=== PATIENT | female | born 1950 | race Caucasian/White ===

== ENCOUNTER → 2018-12-26 11:46 | Outpatient (CLI) | payer MEDICARE, OTHER, SELFPAY ==
--- NOTE | 2018-12-26 | DI.MG.S_ITS ---
BILATERAL DIGITAL SCREENING MAMMOGRAM 3D/2D WITH CAD: 12/26/2018 CLINICAL: Routine screening. Family history of breast cancer. Comparison is made to exams dated: 12/10/2017 mammogram - [facility], 10/16/2015 mammogram, and 12/06/2014 mammogram - [facility]. The tissue of both breasts is heterogeneously dense. This may lower the sensitivity of mammography. Current study was also evaluated with a Computer Aided Detection (CAD) system. There is a benign mass in the right breast. There also are benign calcifications in both breasts. No significant masses, calcifications, or other findings are seen in either breast. There has been no significant interval change. IMPRESSION: There is no mammographic evidence of malignancy. A 1 year screening mammogram is recommended. This exam was interpreted at Station ID: [id number]. NOTE: For mammograms, a report in lay terms will be sent to the patient. Approximately 15% of breast malignancies will not be visualized mammographically. In the management of a palpable breast mass, a negative mammogram must not discourage biopsy of a clinically suspicious lesion. Electronically Signed By: Emeterio lundberg/dyana:12/26/2018 12:50:16 letter sent: Normal Exam ACR BI-RADS Category 2: Benign Finding(s) 3342F
== END ==
PROVIDERS: Visit Provider Family Medicine
DX: Z12.31 Encounter for screening mammogram for malignant neoplasm of breast (principal); Z80.3 Family history of malignant neoplasm of breast
CPT/HCPCS: 77063; 77067

== ENCOUNTER → 2019-03-29 10:05 | Outpatient (CLI) | payer MEDICARE, OTHER, SELFPAY ==
--- NOTE | 2019-03-29 10:07 | DI.RAD.S_ITS ---
PROCEDURE: XR ELBOW RT MIN 3V INDICATIONS: lateral epicondyle pain TECHNIQUE: 3 views of the elbow were acquired. COMPARISON: None. FINDINGS: Bones: No fractures or dislocations. No suspicious bony lesions. Soft tissues: No elbow joint effusion. No suspicious soft tissue calcifications. 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 Dictated by: Kamaljit Harrison M.D. on 03/29/2019 at 10:26 Approved by: Kamaljit Harrison M.D. on 03/29/2019 at 10:26
== END ==
PROVIDERS: PCP Nurse Practitioner; Visit Provider Physician Assistant
DX: M25.521 Pain in right elbow (principal)
CPT/HCPCS: 73080

== ENCOUNTER → 2019-06-29 08:25 | Outpatient (CLI) | payer MEDICARE, OTHER, SELFPAY ==
[2019-06-29 10:17] LABS: Add Manual Diff / Slide Review NO; Basophils Absolute Auto 0 /uL (0-100); Basophils Percent Auto 0.4 % (0-2); Eosinophils Absolute Auto 200 /uL (0-450); Eosinophils Percent Auto 3.3 % (2-4); Hematocrit 44.6 % (36-46); Hemoglobin 15.5 g/dL (12.0-16.0); Lymphocytes Absolute Auto 2000 /uL (1100-4500); Lymphocytes Percent Auto 30.7 % (25-40); Mean Corpuscular HGB Conc 34.8 % (30-36); Mean Corpuscular Hemoglobin 30.6 PG (26-34); Mean Corpuscular Volume 87.8 fL (80-100); Monocytes Absolute Auto 400 /uL (0-900); Monocytes Percent Auto 6.7 % (3-14); Neutrophils Absolute Auto 3900 /uL (1500-7000); Neutrophils Percent Auto 58.9 % (50-75); Platelet Count 97 X10^3/uL (150-400); Red Blood Cell Count 5.07 X10^6/uL (4.0-5.2); Red Cell Distribution Width 13.6 % (11.6-14.8); White Blood Cell Count 6.6 X10^3/uL (4.5-11.0)
[2019-06-29 10:51] LABS: Alanine Aminotransferase 83 IU/L (<35); Albumin 4.2 g/dL (3.5-5.0); Albumin Globulin Ratio 1.8 (1.0-2.8); Alkaline Phosphatase 98 U/L (38-126); Aspartate Aminotransferase 81 IU/L (14-36); Bilirubin Total 1.8 mg/dL (0.2-1.3); Blood Urea Nitrogen 27 mg/dL (7-17); Calcium 9.1 mg/dL (8.4-10.2); Carbon Dioxide 31 mmol/L (22-32); Chloride 101 mmol/L (98-107); Cholesterol 176 mg/dL (140-199); Estimated Glomerular Filt Rate > 60.0 mL/min (>60); Globulin 2.4 g/dL (1.7-4.1); Glucose 101 mg/dL (80-110); HDL Cholesterol 43 mg/dL (40-60); HEMOLYSIS < 15 (0-50); LDL Cholesterol Calculated 115 mg/dL (<100); Sodium 140 mmol/L (137-145); Total Protein 6.6 g/dL (6.3-8.2); Triglycerides 92 mg/dL (35-150)
[2019-06-29 11:06] LABS: Free T3, Triiodothyronine Free 4.02 pg/mL (2.77-5.27); Free T4, Direct Thyroxine 1.42 ng/dL (0.78-2.19)
[2019-06-29 11:19] LABS: Thyroid Stimulating Hormone 2.75 uIU/mL (0.47-4.68)
== END ==
PROVIDERS: PCP Nurse Practitioner; Visit Provider Nurse Practitioner
DX: Z13.1 Encounter for screening for diabetes mellitus (principal); K59.00 Constipation, unspecified; L65.9 Nonscarring hair loss, unspecified; R63.5 Abnormal weight gain; Z13.6 Encounter for screening for cardiovascular disorders
CPT/HCPCS: 36415; 80053; 80061; 84439; 84443; 84481; 85025

== ENCOUNTER → 2019-07-03 09:38 | Outpatient (CLI) | payer MEDICARE, OTHER, SELFPAY | PROVIDERS: PCP Nurse Practitioner; Visit Provider Nurse Practitioner | DX: Z13.820 Encounter for screening for osteoporosis (principal); M85.88 Other specified disorders of bone density and structure, other site; Z78.0 Asymptomatic menopausal state | CPT/HCPCS: 77080 ==

== ENCOUNTER → 2019-07-06 08:53 | Outpatient (CLI) | payer MEDICARE, OTHER, SELFPAY ==
[2019-07-06 10:29] LABS: Alanine Aminotransferase 70 IU/L (<35); Albumin 4.3 g/dL (3.5-5.0); Albumin Globulin Ratio 1.7 (1.0-2.8); Alkaline Phosphatase 87 U/L (38-126); Aspartate Aminotransferase 69 IU/L (14-36); Bilirubin Total 1.3 mg/dL (0.2-1.3); Bilirubin Unconjugated 1.1 mg/dL (0.0-1.1); Globulin 2.6 g/dL (1.7-4.1); HEMOLYSIS < 15 (0-50); Total Protein 6.9 g/dL (6.3-8.2)
[2019-07-06 11:18] LABS: Hep C Virus Ab w/Reflex Quant NEGATIVE s/c (NEGATIVE)
== END ==
PROVIDERS: PCP Nurse Practitioner; Visit Provider Nurse Practitioner
DX: R74.8 Abnormal levels of other serum enzymes (principal); Z11.59 Encounter for screening for other viral diseases; Z91.89 Other specified personal risk factors, not elsewhere classified
CPT/HCPCS: 36415; 80076; 86803

== ENCOUNTER → 2020-07-09 08:31 | Outpatient (CLI) | payer MEDICARE, OTHER, SELFPAY ==
[2020-07-09 09:31] LABS: Alanine Aminotransferase 105 IU/L (<35); Albumin Globulin Ratio 1.5 (1.0-2.8); Alkaline Phosphatase 114 U/L (38-126); Aspartate Aminotransferase 85 IU/L (14-36); BUN Creatinine Ratio 25.9 (6-22); Bilirubin Total 1.4 mg/dL (0.2-1.3); Blood Urea Nitrogen 21 mg/dL (7-17); Calcium 8.9 mg/dL (8.4-10.2); Carbon Dioxide 33 mmol/L (22-32); Chloride 104 mmol/L (98-107); Estimated Glomerular Filt Rate > 60.0 mL/min (>60); Globulin 2.6 g/dL (1.7-4.1); Glucose 150 mg/dL (80-110); HEMOLYSIS < 15 (0-50); Potassium 4.2 mmol/L (3.4-5.1); Sodium 139 mmol/L (137-145); Total Protein 6.6 g/dL (6.3-8.2)
== END ==
PROVIDERS: PCP Nurse Practitioner; Referring Provider Nurse Practitioner; Visit Provider Nurse Practitioner
DX: R79.89 Other specified abnormal findings of blood chemistry (principal)
CPT/HCPCS: 36415; 80053

== ENCOUNTER → 2020-07-15 09:16 | Outpatient (CLI) | payer MEDICARE, OTHER, SELFPAY ==
[2020-07-15 10:57] LABS: Hemoglobin A1C% w Est Avg Glu 6.9 % (4.0-6.0)
[2020-07-15 11:28] LABS: Glucose 146 mg/dL (80-110)
== END ==
PROVIDERS: PCP Nurse Practitioner; Referring Provider Nurse Practitioner; Visit Provider Nurse Practitioner
DX: R73.01 Impaired fasting glucose (principal)
CPT/HCPCS: 36415; 82947; 83036

== ENCOUNTER → 2020-08-05 09:54 | Outpatient (CLI) | payer MEDICARE, OTHER, SELFPAY ==
--- NOTE | 2020-08-05 11:03 | DIET.PN ---
Diabetes Intake: Initial Assessment Assess: Ms. Deshpande is a 70 yof with newly diagnosed type 2 diabetes. She reports difficulty with chewing related to ill-fitting dentures creating challenges with making heathy choices. She generally eats her main meal at lunch which is provided by the [facility]. She is exercising 1 hr/day with silver sneakers. Does not currently have a glucometer. Labs: Per pt report: A1c: 6.9 Meds: na Diet: per 24 hr recall: B: coffee L: steamed vegetable w/ chicken ([facility]) D: scrambled eggs w/ steamed vegetables Sn: ww bread w/ cheese or jelly; fruit Wt: 136lb Ht: 62in BMI: 24.9 DX: Altered nutrition related laboratory values related to impaired glucose metabolism, lack of previous exposure to nutrition information as evidenced by pt report, diagnosis of diabetes, previous diet high in refined carbohydrates. Intervention: 1. Completed intake assessment. Discussed barriers to care. 2. Discussed pathophysiology of diabetes. Reviewed A1c and its correlation to blood glucose numbers. Discussed recommended BG ranges. Provided demonstration. 3. Discussed importance of self-monitoring, how often, and when to check. 4. Reviewed hyper/hypoglycemia and treatment. 5. Reviewed safe disposal of equipment (strip/lancets/insulin needles). 6. Created SMART goals for pt self-care and success. 7. Discussed program curriculum outline and class needs based on individual goals. SMART Goals: 1. Goal weight of 120lb (15lb weight loss) over the next 6 mo through portion control, label reading, consistent carb intake. Monitor/Evaluate: Pt will attend full DSME program. Basic Nutrition class scheduled for Sep 09.
== END ==
PROVIDERS: PCP Nurse Practitioner; Referring Provider Nurse Practitioner; Visit Provider Nurse Practitioner
DX: E11.9 Type 2 diabetes mellitus without complications (principal); Z71.3 Dietary counseling and surveillance; Z68.24 Body mass index [BMI] 24.0-24.9, adult
CPT/HCPCS: G0108

== ENCOUNTER → 2020-09-09 09:41 | Outpatient (CLI) | payer MEDICARE, OTHER, SELFPAY ==
--- NOTE | 2020-09-09 11:17 | DIET.PN ---
Diabetes: Healthy Eating 1 Intervention: ? Discussed pathophysiology of diabetes and impact of nutrition/diet on blood sugar control.? Discussed fed versus non-fed state.?? ? Reviewed importance of Balance, Variety, and Moderation. ? Discussed the effect of carbohydrates/protein/fat on blood sugar control.? ? Stressed importance of consistent carbohydrate intake at each meal and provided instructions for recommended servings/portions of carbohydrates/protein per meal. Provided educational material. ? Reviewed carbohydrate counting and measuring carbohydrate content via serving sizes and reading nutrition labels.? Provided handouts.?? ? Discussed the difference between simple versus complex carbohydrates and the effect of fiber on blood sugar control.? Discussed various methods to increase fiber content in diet. ? Discussed the plate method for creating more carbohydrate conscious balanced meals. ? Stressed importance of meal timing and not going >4-5 hours between meals. Encouraged adding protein to evening snack to support glucose control overnight. ? Discussed importance of making dietary habits part of lifestyle change.
== END ==
PROVIDERS: PCP Nurse Practitioner; Referring Provider Nurse Practitioner; Visit Provider Nurse Practitioner
DX: E11.9 Type 2 diabetes mellitus without complications (principal); Z71.3 Dietary counseling and surveillance
CPT/HCPCS: G0109

== ENCOUNTER → 2020-09-16 09:46 | Outpatient (CLI) | payer MEDICARE, OTHER, SELFPAY ==
--- NOTE | 2020-09-16 11:19 | DIET.PN ---
Diabetes: Healthy Eating 2 Intervention: Fats effects on glucose, weight, heart disease, cholesterol Sat Vs Unsat Protein- animal and plant based options Low, med, high fat meats Sugar substitutes Sodium Health claims Grocery shopping guidelines Eating away from home Alcohol Sick day guidelines Ketone Testing
== END ==
PROVIDERS: PCP Nurse Practitioner; Referring Provider Nurse Practitioner; Visit Provider Nurse Practitioner
DX: E11.9 Type 2 diabetes mellitus without complications (principal); Z71.3 Dietary counseling and surveillance
CPT/HCPCS: G0109

== ENCOUNTER → 2020-09-23 09:45 | Outpatient (CLI) | payer MEDICARE, OTHER, SELFPAY ==
--- NOTE | 2020-09-23 11:44 | DIET.PN ---
Diabetes Physiology: Intervention 1. Diabetes physiology 2. Detecting and treatment of acute and chronic complications 3. Diagnosis of and difference in types of diabetes 4. Self-monitoring and pattern management a. Demonstrate glucometer and control testing b. Explain BG results and action to take when out of range. 5. Foot , eye, dental care 6. Medications a. Oral medication classification b. Injectable c. Insulin i. Injection protocol ii Other delivery methods
== END ==
PROVIDERS: PCP Nurse Practitioner; Referring Provider Nurse Practitioner; Visit Provider Nurse Practitioner
DX: E11.9 Type 2 diabetes mellitus without complications (principal); Z71.3 Dietary counseling and surveillance
CPT/HCPCS: G0109

== ENCOUNTER → 2020-10-02 09:43 | Outpatient (CLI) | payer MEDICARE, OTHER, SELFPAY ==
[2020-10-02 10:32] VITALS: BMI 23.6
--- NOTE | 2020-10-02 10:32 | DIET.PN ---
DIABETES Nutrition Initial Assessment:? ASSESS:??Ms. Deshpande is a 70 yof?referred for type 2 diabetes seen as part of DSME program. She has been monitoring and keeping a glucose log since July. Her ranges have overall been WNL. She endorses better eating choices including more vegetables and fruits since getting new dentures. She has lost weight through dietary changes and feels more aware of the foods to limit and increase for better glucose control. ??? LABS: Per pt report:? A1c: 6.9 ? MEDS:?? na ? DIET: Per 24-hour recall:? B: coffee L: chicken/fish, veggies (frozen meals from [facility]) D: toast w/ cheese, fruit Eating Out: rarely Changes in Appetite: n/a Nutrition Supplements: n/a ? Weight: 128lb Height: 62in BMI: ? 23.4 ? Exercise:? silver sneakers/silver & fit NUTRITION DX 1. Altered Nutrition related labs related to impaired glucose metabolism, lack of previous exposure to accurate nutrition information as evidenced by pt report, dx of diabetes, previous diet high in refined carbohydrates.? INTERVENTION(s): 1. Reviewed pathophysiology of diabetes and impact of nutrition/diet on blood sugar control.? Discussed fed versus non-fed state.?? 2. Discussed the effect of carbohydrates/protein/fat on blood sugar control.? Stressed importance of consistent carbohydrate intake at each meal and provided instructions for recommended servings/portions of carbohydrates/protein per meal. Provided pt with educational material. 3. Reviewed carbohydrate counting and measuring carbohydrate content via serving sizes and reading nutrition labels.? Provided handouts.?? 4. Provided healthy snacking under 200 calories list. 5. Stressed importance of meal timing and not going >4-5 hours between meals. Encouraged adding protein to evening snack to support glucose control overnight. Patient agreeable. 6. Discussed healthy weight loss goals of 1-2lbs per week through diet and exercise.? Pt agreeable to walking at least 30 minutes daily. 7. Recommend monitoring fasting and alternating 2 hr PP mealtime glucose. MONITOR/EVALUATE: Anticipate good compliance.? Nutrition follow-up scheduled for December following new labs.
== END ==
PROVIDERS: PCP Nurse Practitioner; Referring Provider Nurse Practitioner; Visit Provider Nurse Practitioner
DX: E11.9 Type 2 diabetes mellitus without complications (principal); Z71.3 Dietary counseling and surveillance; Z68.23 Body mass index [BMI] 23.0-23.9, adult
CPT/HCPCS: G0109

== ENCOUNTER → 2020-11-10 10:25 | Outpatient (CLI) | payer MEDICARE, OTHER, SELFPAY ==
[2020-11-10] MEDS: COVID-19 VACC, Ad26(JANSSEN)/PF 0.5 ML IM (10:33)
== END ==
PROVIDERS: PCP Nurse Practitioner; Visit Provider Internal Medicine
DX: Z23 Encounter for immunization (principal)
CPT/HCPCS: 0031A; 91303

== ENCOUNTER → 2021-01-30 09:04 | Outpatient (CLI) | payer MEDICARE, OTHER, SELFPAY ==
[2021-01-30 09:35] LABS: Hemoglobin A1C% w Est Avg Glu 6.1 % (4.0-6.0)
[2021-01-30 10:13] LABS: Alanine Aminotransferase 65 IU/L (<35); Albumin Globulin Ratio 1.5 (1.0-2.8); Alkaline Phosphatase 112 U/L (38-126); Aspartate Aminotransferase 56 IU/L (14-36); Bilirubin Total 1.6 mg/dL (0.2-1.3); Blood Urea Nitrogen 18 mg/dL (7-17); Calcium 9.3 mg/dL (8.4-10.2); Carbon Dioxide 25 mmol/L (22-32); Chloride 105 mmol/L (98-107); Estimated Glomerular Filt Rate > 60.0 mL/min (>60); Globulin 2.6 g/dL (1.7-4.1); Glucose 123 mg/dL (80-110); HEMOLYSIS < 15 (0-50); Potassium 4.3 mmol/L (3.4-5.1); Sodium 138 mmol/L (137-145); Total Protein 6.6 g/dL (6.3-8.2)
== END ==
PROVIDERS: PCP Nurse Practitioner; Referring Provider Nurse Practitioner; Visit Provider Nurse Practitioner
DX: R73.01 Impaired fasting glucose (principal); R79.89 Other specified abnormal findings of blood chemistry
CPT/HCPCS: 36415; 80053; 83036

== ENCOUNTER → 2021-02-21 10:59 | Outpatient (CLI) | payer MEDICARE, OTHER, SELFPAY ==
--- NOTE | 2021-02-21 11:01 | DI.MG.S_ITS ---
BILATERAL DIGITAL SCREENING MAMMOGRAM 3D/2D WITH CAD: 02/21/2021 CLINICAL: Routine screening. Family history of breast cancer. Comparison is made to exams dated: 12/26/2018 mammogram, 12/10/2017 mammogram - [facility], 10/16/2015 mammogram, and 12/06/2014 mammogram - [facility]. The tissue of both breasts is heterogeneously dense. This may lower the sensitivity of mammography. Current study was also evaluated with a Computer Aided Detection (CAD) system. There is possible developing architectural distortion in the right breast anterior depth central to the nipple seen on the mediolateral oblique view only. This is more prominent. No other significant masses, calcifications, or other findings are seen in either breast. IMPRESSION: INCOMPLETE: NEEDS ADDITIONAL IMAGING EVALUATION The possible developing architectural distortion in the right breast is indeterminate. Additional views with possible ultrasound are recommended. This exam was interpreted at Station ID: [id number]. NOTE: For mammograms, a report in lay terms will be sent to the patient. Approximately 15% of breast malignancies will not be visualized mammographically. In the management of a palpable breast mass, a negative mammogram must not discourage biopsy of a clinically suspicious lesion. Electronically Signed By: Everett Caraballo M.D. [facility] [place]:02/23/2021 08:47:33 letter sent: Additional Imaging Needed ACR BI-RADS Category 0: Incomplete 3340F
== END ==
PROVIDERS: PCP Nurse Practitioner; Referring Provider Nurse Practitioner; Visit Provider Nurse Practitioner
DX: Z12.31 Encounter for screening mammogram for malignant neoplasm of breast (principal); Z80.3 Family history of malignant neoplasm of breast
CPT/HCPCS: 77063; 77067

== ENCOUNTER → 2021-03-13 12:25 | Outpatient (CLI) | payer MEDICARE, OTHER, SELFPAY ==
--- NOTE | 2021-03-13 | DI.MG.S_ITS ---
UNILATERAL RIGHT DIGITAL DIAGNOSTIC MAMMOGRAM 3D/2D WITH ADDITIONAL VIEWS: 03/13/2021 CLINICAL: Additional evaluation requested from prior study. Comparison is made to exams dated: 02/21/2021 mammogram, 12/26/2018 mammogram, and 12/10/2017 mammogram - [facility]. The tissue of right breast is heterogeneously dense. This may lower the sensitivity of mammography. The previously described possible developing architectural distortion in the right breast anterior depth central to the nipple seen on the mediolateral oblique view only is not reproduced and presumably represented superimposed breast tissue. No other significant masses or calcifications are seen in the breast. IMPRESSION: INCOMPLETE: NEEDS ADDITIONAL IMAGING EVALUATION The previously described possible architectural distortion disperses with additional views and is consistent with summation artifact; however, an ultrasound is recommended for further evaluation to exclude retroareolar abnormalities and is scheduled to immediately follow this examination. This exam was interpreted at Station ID: [id number]. NOTE: For mammograms, a report in lay terms will be sent to the patient. Approximately 15% of breast malignancies will not be visualized mammographically. In the management of a palpable breast mass, a negative mammogram must not discourage biopsy of a clinically suspicious lesion. Electronically Signed By: Emeterio Kirkpatrick M.D. aty/:03/13/2021 13:42:21 copy to: JOCELYNE LANDIS BI-RADS Category 0: Incomplete 3340F
--- NOTE | 2021-03-13 12:26 | DI.US.S_ITS ---
ULTRASOUND OF RIGHT BREAST: 03/13/2021 CLINICAL: Patient returns today to evaluate a focal asymmetry in the right breast. Comparison is made to exams dated: 03/13/2021 mammogram, 02/21/2021 mammogram, 12/26/2018 mammogram, 12/10/2017 mammogram - [facility], and 10/16/2015 mammogram - [facility]. Real-time ultrasound of the right breast was performed. Sarabia scale images of the real-time examination were reviewed. No significant abnormalities were seen sonographically in the right breast. IMPRESSION: NEGATIVE There is no sonographic evidence of malignancy. There is no abnormality seen in the right breast to correspond with the now resolved mammography finding which likely represents normal subareolar fibroglandular tissue. A 1 year screening mammogram is recommended. Findings and recommendations were conveyed to the patient during today's evaluation. This exam was interpreted at Station ID: [id number]. Electronically Signed By: Emeterio Kirkpatrick M.D. at/:03/13/2021 13:43:55 copy to: JOCELYNE MALIN letter sent: Normal Exam Ultrasound BI-RADS: 1 Negative
== END ==
PROVIDERS: PCP Nurse Practitioner; Referring Provider Nurse Practitioner; Visit Provider Nurse Practitioner
DX: R92.8 Other abnormal and inconclusive findings on diagnostic imaging of breast (principal); N64.89 Other specified disorders of breast
CPT/HCPCS: 76642; 77065; G0279

== ENCOUNTER 2021-05-05 11:15 | Outpatient (RCR) | payer MEDICARE, OTHER, SELFPAY ==
--- NOTE | 2021-04-24 14:47 | PT.OIE ---
Current Diagnoses Female genital prolapse, unspecified (04/24/21) Fecal smearing (04/24/21) Nocturia (04/24/21) Past Medical History (Last Reviewed 03/27/21 @ 04:06 by Thi Oliver MD) Antral gastritis Colon polyp Constipation Diverticulosis Elevated fasting blood sugar Elevated LFTs Hiatal hernia History of cataract surgery Impaired fasting blood sugar Intermittent vomiting Rectal prolapse Sensorineural hearing loss, bilateral Past Surgical History (Last Reviewed 03/27/21 @ 04:06 by Thi Oliver MD) History of cataract removal with insertion of prosthetic lens (11/15/16) History of cataract surgery Visit Care Team Role Provider Type MARA Lind Primary Care Provider Advanced Automatic Blocker Specialty: Family Practice Address: [address] [place] [address], [id number] Email: [email or web address] Thi Oliver MD Attending Provider Physician Referring Provider Specialty: SCIENTOLOGIST Address: [address] [place] [address], [id number] Email: Physical Therapy Initial Evaluation PT-OP-A Visit Information Start: 04/24/21 07:22 Freq: Status: Active Protocol: Document 04/24/21 10:15 AMB (Rec: 04/24/21 14:46 AMB [email or web address]) Out-Patient Physical Therapy Visit Information Visit Information Visit Type Initial Evaluation Visit Start Time 10:15 Visit Stop Time 11:00 Total Visit Minutes 45 Visit Number 1 PT-OP-B Current Condition Start: 04/24/21 07:22 Freq: Status: Active Protocol: Document 04/24/21 10:15 AMB (Rec: 04/24/21 10:38 AMB [id number]) Current Condition History of Current Condition Onset Date A few years Current Complaints fecal and urinary incontinence History of Current Condition Fecal incontinence (mucus) and urine incontinence (unable to say what causes). Variable constipation, states sometimes has a bowel movement 1x/week and sometimes 1x/day. History of some kind of prolapse surgery in 2016 in [place]. 2 vaginal deliveries, did tear but doesn't think into rectum . Nocturia and urinary frequency but denies triggers. Feels like sometimes she needs to strain to have a bowel movement and then feels pressure from prolapse. Is sometimes constipated and sometimes has very loose stools. Treatment Goals Patient/Caregiver Goals Decrease fecal incontinence Prior Functional Status Baseline Function- ADL's Independent Baseline Function- Mobility Independent Current Functional Impairments (Reported) Functional Limitations- ADL's Mucus leaking semi constant Personal Factors Other Personal Factors That May Effect Language barrier, difficulty Therapy/Recovery explaining symptoms PT-OP-I Pelvic Floor Start: 04/24/21 07:22 Freq: Status: Active Protocol: Document 04/24/21 10:15 AMB (Rec: 04/24/21 14:46 AMB [email or web address]) Pelvic Floor Assessment Urine Pelvic Floor Surgery Yes: prolapse surgery- unsure what kind Urinary Symptoms Prolapse,Falling Out Feeling/ Heavy Leakage Size Small Other Leakage Causes unsure Leaks Per Day unsure Voiding Frequency unsure Nocturia 3 Bowel Bowel Symptoms Constipation,Fecal Leakage Bowel Movement Frequency unsure [place] Stool Chart Comments variable Pelvic Clock Inter-Rectal Assessment 2/5 strength with 2 second hold, tends to hold breath and use abdominals PT-OP-T Assessment and Plan Start: 04/24/21 07:22 Freq: Status: Active Protocol: Document 04/24/21 10:15 AMB (Rec: 04/24/21 14:46 AMB [email or web address]) Physical Therapy Assessment Rehab Potential Rehabilitation Potential Fair Evaluation Complexity Number of Personal Factors/Comorbidities 1-2 Number of Body Systems Impaired 1-2 Clinical Presentation at Evaluation Stable Impairments Impairments Functional Activities,Strength Goals Two Impairment Constipation Short Term Goal (STG) Carla will avoid straining to have a bowel movement to avoid worsening her prolapse. STG Duration 4 weeks One Impairment Pelvic floor strength Short Term Goal (STG) Carla will maintain a pelvic floor contraction for 10 seconds while breathing and without abdominal compensation . STG Duration 4 weeks Shelter Goal (LTG) Carla will contract her pelvic floor for 10 seconds while in standing. LTG Duration 8 weeks Assessment Summary Assessment Carla attends physical therapy with a fairly vague complaint of fecal incontinence and urinary incontinence. She is unsure what factors contribute to either. She does have a weak pelvic floor, on and off constipation, and an apparent history of prolapse surgery. She was given a bladder diary to try to get a bit more of a specific idea of what might be contributing to her incontinence, but she would definitely benefit from pelvic floor strengthening, given her weakness and her fecal incontinence. Physical Therapy Plan Frequency and Duration Frequency of Treatment 1x/Week Duration of Treatment 8 weeks Plan of Care Start Date 04/24/21 Plan of Care End Date 06/19/21 Therapeutic Interventions Therapeutic Interventions Home Exercise Program,Manual Therapy,Neuromuscular Re- education,Self-Care/Home Management,Therapeutic Activities,Therapeutic Exercises Modalities Biofeedback,Cold Pack/Ice Massage,Electric Stimulation, Hot Packs Next Visit Focus/Plan Next Note Type Treatment Note Next Visit Plan Follow up on bladder diary, progress pelvic floor contraction
--- NOTE | 2021-04-24 14:47 | PT.OPPOC ---
Addendum entered and electronically signed by Amy Stafford, NIKKIE 05/19/21 09:07: Resending POC Original Note: Physical, Occupational & Speech Therapy At [facility] Current Diagnoses Female genital prolapse, unspecified (04/24/21) Fecal smearing (04/24/21) Nocturia (04/24/21) Visit Care Team Role Provider Type MARA Lind Primary Care Provider Advanced Chinese Language Professor Specialty: Family Practice Address: [address] [place] [address], [id number] Email: [email or web address] Thi Oliver MD Attending Provider Physician Referring Provider Specialty: LOADING MACHINE ADJUSTER Address: [address] [place] [address], [id number] Email: Plan Of Care PT-OP-T Assessment and Plan Start: 04/24/21 07:22 Freq: Status: Active Protocol: Document 04/24/21 10:15 AMB (Rec: 04/24/21 14:46 AMB [email or web address]) Physical Therapy Assessment Rehab Potential Rehabilitation Potential Fair Evaluation Complexity Number of Personal Factors/Comorbidities 1-2 Number of Body Systems Impaired 1-2 Clinical Presentation at Evaluation Stable Impairments Impairments Functional Activities,Strength Goals Two Impairment Constipation Short Term Goal (STG) Carla will avoid straining to have a bowel movement to avoid worsening her prolapse. STG Duration 4 weeks One Impairment Pelvic floor strength Short Term Goal (STG) Carla will maintain a pelvic floor contraction for 10 seconds while breathing and without abdominal compensation . STG Duration 4 weeks Longterm Goal (LTG) Carla will contract her pelvic floor for 10 seconds while in standing. LTG Duration 8 weeks Assessment Summary Assessment Carla attends physical therapy with a fairly vague complaint of fecal incontinence and urinary incontinence. She is unsure what factors contribute to either. She does have a weak pelvic floor, on and off constipation, and an apparent history of prolapse surgery. She was given a bladder diary to try to get a bit more of a specific idea of what might be contributing to her incontinence, but she would definitely benefit from pelvic floor strengthening, given her weakness and her fecal incontinence. Physical Therapy Plan Frequency and Duration Frequency of Treatment 1x/Week Duration of Treatment 8 weeks Plan of Care Start Date 04/24/21 Plan of Care End Date 06/19/21 Therapeutic Interventions Therapeutic Interventions Home Exercise Program,Manual Therapy,Neuromuscular Re- education,Self-Care/Home Management,Therapeutic Activities,Therapeutic Exercises Modalities Biofeedback,Cold Pack/Ice Massage,Electric Stimulation, Hot Packs Next Visit Focus/Plan Next Note Type Treatment Note Next Visit Plan Follow up on bladder diary, progress pelvic floor contraction Plan of Care Dates Plan of Care Start Date 04/24/21 Plan of Care End Date 06/19/21 Electronically Signed by: Amy Stafford, PT 04/24/21 [id number] Please Sign and Return: I have reviewed this Plan of Care and certify that the skilled therapy services above are required to meet the patient?s needs. Physician Signature Date Printed Name and Credentials Clinical Instructor Signature Printed Name and Credentials
--- NOTE | 2021-04-30 15:33 | PT.OTN ---
Current Diagnoses Female genital prolapse, unspecified (04/30/21) Fecal smearing (04/30/21) Nocturia (04/30/21) Physical Therapy Treatment Note PT-OP-A Visit Information Start: 04/24/21 07:22 Freq: Status: Active Protocol: Document 04/30/21 10:15 AMB (Rec: 04/30/21 11:04 AMB [id number]) Out-Patient Physical Therapy Visit Information Visit Information Visit Type Treatment Note Visit Start Time 10:15 Visit Stop Time 11:00 Total Visit Minutes 45 Visit Number 2 PT-OP-B Current Condition Start: 04/24/21 07:22 Freq: Status: Active Protocol: Document 04/24/21 10:15 AMB (Rec: 04/24/21 10:38 AMB [id number]) Current Condition History of Current Condition Onset Date A few years Current Complaints fecal and urinary incontinence History of Current Condition Fecal incontinence (mucus) and urine incontinence (unable to say what causes). Variable constipation, states sometimes has a bowel movement 1x/week and sometimes 1x/day. History of some kind of prolapse surgery in 2016 in [place]. 2 vaginal deliveries, did tear but doesn't think into rectum . Nocturia and urinary frequency but denies triggers. Feels like sometimes she needs to strain to have a bowel movement and then feels pressure from prolapse. Is sometimes constipated and sometimes has very loose stools. Treatment Goals Patient/Caregiver Goals Decrease fecal incontinence Prior Functional Status Baseline Function- ADL's Independent Baseline Function- Mobility Independent Current Functional Impairments (Reported) Functional Limitations- ADL's Mucus leaking semi constant Personal Factors Other Personal Factors That May Effect Language barrier, difficulty Therapy/Recovery explaining symptoms PT-OP-C Subjective Start: 04/24/21 07:22 Freq: Status: Active Protocol: Document 04/30/21 10:15 AMB (Rec: 04/30/21 15:33 AMB [email or web address]) OP-PT Subjective Patient Comments Patient Comments Carla reports less leaking than she thought, bladder diary shows less nocturia than she reported, and 1-4 leaks of mucus/day. She thinks this might be slightly better than previous. PT-OP-I Pelvic Floor Start: 04/24/21 07:22 Freq: Status: Active Protocol: Document 04/24/21 10:15 AMB (Rec: 04/24/21 14:46 AMB [email or web address]) Pelvic Floor Assessment Urine Pelvic Floor Surgery Yes: prolapse surgery- unsure what kind Urinary Symptoms Prolapse,Falling Out Feeling/ Heavy Leakage Size Small Other Leakage Causes unsure Leaks Per Day unsure Voiding Frequency unsure Nocturia 3 Bowel Bowel Symptoms Constipation,Fecal Leakage Bowel Movement Frequency unsure [place] Stool Chart Comments variable Pelvic Clock Inter-Rectal Assessment 2/5 strength with 2 second hold, tends to hold breath and use abdominals PT-OP-Q Treatments Start: 04/24/21 07:22 Freq: Status: Active Protocol: Document 04/30/21 10:15 AMB (Rec: 04/30/21 15:33 AMB [email or web address]) Therapeutic Exercises Sitting Exercises 1 Sitting Exercise Name roll in/ roll out Side bilateral Resistance #2 t band Self-Care/Home Management Treatment Education Other Education ILU massage, increasing fluid intake for reduction of constipation, role of constipation in fecal leaking. PT-OP-T Assessment and Plan Start: 04/24/21 07:22 Freq: Status: Active Protocol: Document 04/30/21 10:15 AMB (Rec: 04/30/21 15:33 AMB [email or web address]) Physical Therapy Assessment Goals Two Impairment Constipation Short Term Goal (STG) Carla will avoid straining to have a bowel movement to avoid worsening her prolapse. STG Duration 4 weeks One Impairment Pelvic floor strength Short Term Goal (STG) Carla will maintain a pelvic floor contraction for 10 seconds while breathing and without abdominal compensation . STG Duration 4 weeks Theatrical Rigger Goal (LTG) Carla will contract her pelvic floor for 10 seconds while in standing. LTG Duration 8 weeks Assessment Summary Assessment Carla sounds like she is having a bit of leaking of mucus due to constipation. She is not having a bowel movement for multiple days and then has a couple. Goes from constipation to liquid stool and back, and is not drinking enough fluids. Encouraged her in pelvic floor strengthing, urgency reduction, and ILU bowel massage. Encouraged her in working on more regular bowel movements to avoid leaking rectally. Physical Therapy Plan Next Visit Focus/Plan Next Note Type Treatment Note Next Visit Plan Follow up on bladder diary, progress pelvic floor contraction
--- NOTE | 2021-05-05 11:40 | PT.OTN ---
Current Diagnoses Female genital prolapse, unspecified (05/05/21) Fecal smearing (05/05/21) Nocturia (05/05/21) Physical Therapy Treatment Note PT-OP-A Visit Information Start: 04/24/21 07:22 Freq: Status: Active Protocol: Document 05/05/21 11:00 AMB (Rec: 05/05/21 11:32 AMB [id number]) Out-Patient Physical Therapy Visit Information Visit Information Visit Type Treatment Note Visit Start Time 11:00 Visit Stop Time 11:45 Total Visit Minutes 45 Visit Number 3 PT-OP-B Current Condition Start: 04/24/21 07:22 Freq: Status: Active Protocol: Document 04/24/21 10:15 AMB (Rec: 04/24/21 10:38 AMB [id number]) Current Condition History of Current Condition Onset Date A few years Current Complaints fecal and urinary incontinence History of Current Condition Fecal incontinence (mucus) and urine incontinence (unable to say what causes). Variable constipation, states sometimes has a bowel movement 1x/week and sometimes 1x/day. History of some kind of prolapse surgery in 2016 in [place]. 2 vaginal deliveries, did tear but doesn't think into rectum . Nocturia and urinary frequency but denies triggers. Feels like sometimes she needs to strain to have a bowel movement and then feels pressure from prolapse. Is sometimes constipated and sometimes has very loose stools. Treatment Goals Patient/Caregiver Goals Decrease fecal incontinence Prior Functional Status Baseline Function- ADL's Independent Baseline Function- Mobility Independent Current Functional Impairments (Reported) Functional Limitations- ADL's Mucus leaking semi constant Personal Factors Other Personal Factors That May Effect Language barrier, difficulty Therapy/Recovery explaining symptoms PT-OP-C Subjective Start: 04/24/21 07:22 Freq: Status: Active Protocol: Document 05/05/21 11:00 AMB (Rec: 05/05/21 11:32 AMB [id number]) OP-PT Subjective Patient Comments Patient Comments Carla reports less leaking over the last 5 days. She is working on urge reduction. PT-OP-I Pelvic Floor Start: 04/24/21 07:22 Freq: Status: Active Protocol: Document 04/24/21 10:15 AMB (Rec: 04/24/21 14:46 AMB [email or web address]) Pelvic Floor Assessment Urine Pelvic Floor Surgery Yes: prolapse surgery- unsure what kind Urinary Symptoms Prolapse,Falling Out Feeling/ Heavy Leakage Size Small Other Leakage Causes unsure Leaks Per Day unsure Voiding Frequency unsure Nocturia 3 Bowel Bowel Symptoms Constipation,Fecal Leakage Bowel Movement Frequency unsure [place] Stool Chart Comments variable Pelvic Clock Inter-Rectal Assessment 2/5 strength with 2 second hold, tends to hold breath and use abdominals PT-OP-Q Treatments Start: 04/24/21 07:22 Freq: Status: Active Protocol: Document 05/05/21 11:00 AMB (Rec: 05/05/21 11:32 AMB [id number]) Therapeutic Exercises Supine Exercises 2 Supine Exercise Name supine leg fall out Comments with TA and PF 1 Supine Exercise Name supine march with TA and PF Reps/Minutes 10 Comments vc breath Sitting Exercises 2 Sitting Exercise Name quick flicks Comments focus on PF isolation Standing Exercises 2 Standing Exercise Name mini lunges with pelvic floor Comments cues for breathing 1 Standing Exercise Name quick flicks Comments NBOS then stride stance PT-OP-T Assessment and Plan Start: 04/24/21 07:22 Freq: Status: Active Protocol: Document 05/05/21 11:00 AMB (Rec: 05/05/21 11:32 AMB [id number]) Physical Therapy Assessment Assessment Summary Assessment Carla needed near constant cues to isolate PF muscles vs using legs/ abdominal muscles. Challenged by stabilizing with PF with movement in supine or standing. Physical Therapy Plan Next Visit Focus/Plan Next Note Type Treatment Note Next Visit Plan Could try sEMG, continue to work on pelvic floor isolation and coordination with breathing, avoiding over using abs.
--- NOTE | 2021-05-18 15:22 | PT.OPDS ---
Current Diagnoses Female genital prolapse, unspecified (05/05/21) Fecal smearing (05/05/21) Nocturia (05/05/21) Visit Care Team Role Provider Type MARA Lind Primary Care Provider Advanced Rn Diabetes Specialty: Family Practice Address: [address] [place] [address], [id number] Email: [email or web address] Thi Oliver MD Attending Provider Physician Referring Provider Specialty: [employer] Address: [address] [place] [address], [id number] Email: Visit Number Visit Number 3 Discharge Summary PT-OP-B Current Condition Start: 04/24/21 07:22 Freq: Status: Active Protocol: Document 04/24/21 10:15 AMB (Rec: 04/24/21 10:38 AMB [id number]) Current Condition History of Current Condition Onset Date A few years Current Complaints fecal and urinary incontinence History of Current Condition Fecal incontinence (mucus) and urine incontinence (unable to say what causes). Variable constipation, states sometimes has a bowel movement 1x/week and sometimes 1x/day. History of some kind of prolapse surgery in 2016 in [place]. 2 vaginal deliveries, did tear but doesn't think into rectum . Nocturia and urinary frequency but denies triggers. Feels like sometimes she needs to strain to have a bowel movement and then feels pressure from prolapse. Is sometimes constipated and sometimes has very loose stools. Treatment Goals Patient/Caregiver Goals Decrease fecal incontinence Prior Functional Status Baseline Function- ADL's Independent Baseline Function- Mobility Independent Current Functional Impairments (Reported) Functional Limitations- ADL's Mucus leaking semi constant Personal Factors Other Personal Factors That May Effect Language barrier, difficulty Therapy/Recovery explaining symptoms PT-OP-C Subjective Start: 04/24/21 07:22 Freq: Status: Active Protocol: Document 05/05/21 11:00 AMB (Rec: 05/05/21 11:32 AMB [id number]) OP-PT Subjective Patient Comments Patient Comments Carla reports less leaking over the last 5 days. She is working on urge reduction. PT-OP-I Pelvic Floor Start: 04/24/21 07:22 Freq: Status: Active Protocol: Document 04/24/21 10:15 AMB (Rec: 04/24/21 14:46 AMB [email or web address]) Pelvic Floor Assessment Urine Pelvic Floor Surgery Yes: prolapse surgery- unsure what kind Urinary Symptoms Prolapse,Falling Out Feeling/ Heavy Leakage Size Small Other Leakage Causes unsure Leaks Per Day unsure Voiding Frequency unsure Nocturia 3 Bowel Bowel Symptoms Constipation,Fecal Leakage Bowel Movement Frequency unsure [place] Stool Chart Comments variable Pelvic Clock Inter-Rectal Assessment 2/5 strength with 2 second hold, tends to hold breath and use abdominals PT-OP-T Assessment and Plan Start: 04/24/21 07:22 Freq: Status: Active Protocol: Document 05/18/21 15:18 AMB (Rec: 05/18/21 15:22 AMB [email or web address]) Physical Therapy Assessment Assessment Summary Assessment Carla called the lead front desk agent and to cancel her follow up appointments, she stated that she was getting better and no longer needed further therapy. Physical Therapy Plan Discharge Physical Therapy Discharge Reasons Patient Request
== END 2021-05-19 08:54 | disposition home or self-care (01) ==
LOC: PHYS 11:15
PROVIDERS: PCP Nurse Practitioner; Referring Provider Obstetrics & Gynecology; Visit Provider Obstetrics & Gynecology
DX: N81.9 Female genital prolapse, unspecified (principal); R15.1 Fecal smearing; R35.1 Nocturia
CPT/HCPCS: 97110; 97161; 97535

== ENCOUNTER → 2021-07-29 08:26 | Outpatient (CLI) | payer MEDICARE, OTHER, SELFPAY ==
[2021-07-29 10:20] LABS: Hemoglobin A1C% w Est Avg Glu 5.7 % (4.0-6.0)
[2021-07-29 10:22] LABS: Alanine Aminotransferase 66 IU/L (<35); Albumin 3.9 g/dL (3.5-5.0); Albumin Globulin Ratio 1.6 (1.0-2.8); Alkaline Phosphatase 87 U/L (38-126); Aspartate Aminotransferase 54 IU/L (14-36); BUN Creatinine Ratio 27.5 (6-22); Bilirubin Total 1.5 mg/dL (0.2-1.3); Blood Urea Nitrogen 22 mg/dL (7-17); Calcium 9.1 mg/dL (8.4-10.2); Carbon Dioxide 31 mmol/L (22-32); Chloride 104 mmol/L (98-107); Estimated Glomerular Filt Rate > 60.0 mL/min (>60); Globulin 2.5 g/dL (1.7-4.1); Glucose 141 mg/dL (80-110); HEMOLYSIS < 15 (0-50); Potassium 4.2 mmol/L (3.4-5.1); Sodium 141 mmol/L (137-145); Total Protein 6.4 g/dL (6.3-8.2)
== END ==
PROVIDERS: PCP Nurse Practitioner; Referring Provider Nurse Practitioner; Visit Provider Nurse Practitioner
DX: R73.01 Impaired fasting glucose (principal); R79.89 Other specified abnormal findings of blood chemistry
CPT/HCPCS: 36415; 80053; 83036

== ENCOUNTER → 2021-08-17 09:25 | Outpatient (CLI) | payer MEDICARE, OTHER, SELFPAY ==
--- NOTE | 2021-08-17 09:26 | DI.US.S_ITS ---
PROCEDURE: US ABDOMEN COMPLETE INDICATIONS: persistently elevated LFTs TECHNIQUE: Real-time scanning was performed of the abdominal and retroperitoneal organs, with image documentation. COMPARISON: None. FINDINGS: Liver: The liver is normal size measuring 14.9 cm. The echotexture is slightly heterogeneous and the liver demonstrates a nodular contour. Appropriate direction of portal vein flow. Gallbladder: The gallbladder is normal without stones, sludge, wall thickening, or pericholecystic fluid. Biliary ducts: Intrahepatic bile ducts are non-dilated. Extrahepatic bile duct caliber measures 3.6 mm. Normal is 6-7 mm or less in diameter, or 10 mm or less post-cholecystectomy. Pancreas: Visualized portions of the pancreas are sonographically normal. Spleen: Spleen is enlarged measuring 17.4 x 15.7 x 6.6 cm. The echotexture is homogeneous. Kidneys: Kidneys are at the lower limits of normal in size. The right measures 9.6 cm and the left measures 9.7 cm. There is normal cortical echotexture but slight thinning of the renal cortex and prominence of the renal sinus fat. No hydronephrosis or nephrolithiasis. Aorta: Visualized aorta is normal in caliber at less than 3 cm. Mild atherosclerosis in the distal abdominal aorta. Iliacs: Proximal common iliac arteries are normal in caliber at less than 2.5 cm. IVC: Intrahepatic inferior vena cava is patent. Miscellaneous: No free abdominal fluid. IMPRESSION: 1. Liver margin and echotexture suggests cirrhosis. 2. Splenomegaly suggests portal hypertension, though this may be secondary to other etiologies as well. 3. Normal biliary system. 4. Slightly diminutive kidneys. Dictated by: Bri Hardy M.D. on 08/17/2021 at 11:22 Approved by: Bri Hardy M.D. on 08/17/2021 at 11:27
== END ==
PROVIDERS: PCP Nurse Practitioner; Referring Provider Nurse Practitioner; Visit Provider Nurse Practitioner
DX: R79.89 Other specified abnormal findings of blood chemistry (principal); K76.0 Fatty (change of) liver, not elsewhere classified; R16.1 Splenomegaly, not elsewhere classified
CPT/HCPCS: 76700

== ENCOUNTER → 2021-09-01 12:47 | Outpatient (CLI) | payer MEDICARE, OTHER, SELFPAY ==
[2021-09-01 14:22] LABS: HEMOLYSIS < 15 (0-50); Iron 146 ug/dL (37-170)
[2021-09-01 14:33] LABS: Percent Iron Saturation 34 % (15-50); Total Iron Binding Capacity 431 ug/dL (265-497); Transferrin 300 mg/dL (206-381)
[2021-09-01 15:29] LABS: Alanine Aminotransferase 63 IU/L (<35); Albumin 4.3 g/dL (3.5-5.0); Albumin Globulin Ratio 1.7 (1.0-2.8); Alkaline Phosphatase 97 U/L (38-126); Aspartate Aminotransferase 62 IU/L (14-36); Bilirubin Total 1.9 mg/dL (0.2-1.3); Bilirubin Unconjugated 1.7 mg/dL (0.0-1.1); Globulin 2.5 g/dL (1.7-4.1); HEMOLYSIS < 15 (0-50); Total Protein 6.8 g/dL (6.3-8.2)
[2021-09-01 16:04] LABS: Ferritin 93 ng/mL (11-264)
[2021-09-02 05:43] LABS: Hepatitis A Antibody Total Positive (Negative); Hepatitis B Surf AB Quant <3.1 mIU/mL (Immunity>9.9)
[2021-09-02 08:49] LABS: Alpha 1 Anti Trypsin 149 mg/dL (101-187); Ceruloplasmin 23.9 mg/dL (19.0-39.0); Hepatitis B Core AB w/Reflex Negative (Negative); Immunoglobulin G, Quantitative 651 mg/dL (586-1602)
[2021-09-03 14:20] LABS: ANA Screen, IFA Negative (.)
[2021-09-04 12:36] LABS: Anti Mitochondrial ABY IGG <20.0 Units (0.0-20.0); Smooth Muscle Antibody 3 Units (0-19)
== END ==
PROVIDERS: PCP Nurse Practitioner; Referring Provider Student in an Organized Health Care Education/Training Program; Visit Provider Student in an Organized Health Care Education/Training Program
DX: K76.0 Fatty (change of) liver, not elsewhere classified (principal); R93.5 Abnormal findings on diagnostic imaging of other abdominal regions, including retroperitoneum; R74.8 Abnormal levels of other serum enzymes
CPT/HCPCS: 36415; 80076; 82103; 82390; 82728; 82784; 83516; 83540; 83550; 86038; 86704; 86706; 86708; 87522

== ENCOUNTER → 2021-09-22 08:47 | Outpatient (CLI) | payer MEDICARE, OTHER, SELFPAY ==
[2021-09-24 22:17] LABS: ALT (SGPT) 63 IU/L (0-40); Alpha 2-Macroglobulins, QN 312 mg/dL (110-276); Apolipoprotein A-1 132 mg/dL (116-209); Bilirubin,Total 1.3 mg/dL (0.0-1.2); Fibrosis Score 0.87 (0.00-0.21); GGT 134 IU/L (0-60); Haptoglobin 62 mg/dL (37-355); Necroinflammat Act Grade A2-Moderate activity (.); Necroinflammat Act Score 0.59 (0.00-0.17)
== END ==
PROVIDERS: PCP Nurse Practitioner; Referring Provider Student in an Organized Health Care Education/Training Program; Visit Provider Student in an Organized Health Care Education/Training Program
DX: K76.0 Fatty (change of) liver, not elsewhere classified (principal); R93.5 Abnormal findings on diagnostic imaging of other abdominal regions, including retroperitoneum; R74.8 Abnormal levels of other serum enzymes
CPT/HCPCS: 36415; 81596

== ENCOUNTER → 2021-12-15 08:21 | Outpatient (CLI) | payer MEDICARE, OTHER, SELFPAY ==
[2021-12-15 09:59] LABS: Alanine Aminotransferase 84 IU/L (<35); Albumin 4.1 g/dL (3.5-5.0); Albumin Globulin Ratio 1.5 (1.0-2.8); Alkaline Phosphatase 101 U/L (38-126); Aspartate Aminotransferase 69 IU/L (14-36); Bilirubin Total 1.3 mg/dL (0.2-1.3); Bilirubin Unconjugated 1.4 mg/dL (0.0-1.1); Globulin 2.7 g/dL (1.7-4.1); HEMOLYSIS < 15 (0-50); Total Protein 6.8 g/dL (6.3-8.2)
== END ==
PROVIDERS: Student in an Organized Health Care Education/Training Program; PCP Nurse Practitioner; Referring Provider Nurse Practitioner; Visit Provider Nurse Practitioner
DX: R74.8 Abnormal levels of other serum enzymes (principal)
CPT/HCPCS: 36415; 80076

== ENCOUNTER → 2021-12-22 10:13 | Outpatient (CLI) | payer MEDICARE, OTHER, SELFPAY ==
[2021-12-23 05:53] LABS: IGA 152 mg/dL (87-352); IGG 703 mg/dL (586-1602); IGM 38 mg/dL (26-217)
[2021-12-23 08:03] LABS: Thyroid Stimulating Hormone 1.99 uIU/mL (0.47-4.68)
[2021-12-23 20:38] LABS: Tissue Transglutaminase IgA <2 U/mL (0-3); Tissue Transglutaminase IgG <2 U/mL (0-5)
[2021-12-23 20:57] LABS: Hep C Virus Ab w/Reflex Quant NEGATIVE s/c (NEGATIVE)
== END ==
PROVIDERS: PCP Nurse Practitioner; Referring Provider Internal Medicine Gastroenterology; Visit Provider Internal Medicine Gastroenterology
DX: R93.5 Abnormal findings on diagnostic imaging of other abdominal regions, including retroperitoneum (principal); K74.60 Unspecified cirrhosis of liver; K76.0 Fatty (change of) liver, not elsewhere classified; R74.8 Abnormal levels of other serum enzymes
CPT/HCPCS: 36415; 82784; 83516; 84443; 86803

== ENCOUNTER → 2022-06-25 09:55 | Outpatient (CLI) | payer MEDICARE, OTHER, SELFPAY ==
--- NOTE | 2022-06-25 09:56 | DI.RAD.S_ITS ---
PROCEDURE: XR DEXA AXIAL SKELETON INDICATIONS: post menopausal osteoporosis COMPARISON: [facility], CR, XR DEXA AXIAL SKELETON, 07/03/2019, 9:49. FINDINGS: This blank DEXA report has been sent in error by the PACS system. The correct and complete report will be forthcoming in 1-2 days. Thank you for your patience and understanding. Approved by: Terrence Mai M.D. on 07/03/2022 at 9:34
== END ==
PROVIDERS: PCP Nurse Practitioner; Referring Provider Nurse Practitioner; Visit Provider Nurse Practitioner
DX: Z78.0 Asymptomatic menopausal state; M81.0 Age-related osteoporosis without current pathological fracture
CPT/HCPCS: 77080

== ENCOUNTER → 2022-07-01 09:08 | Outpatient (CLI) | payer MEDICARE, OTHER, SELFPAY ==
[2022-07-01 11:35] LABS: INR 1.2 (0.9-1.3); Prothrombin Time 13.2 SECONDS (10.1-12.7)
[2022-07-01 12:05] LABS: Alanine Aminotransferase 46 IU/L (<35); Albumin 4.2 g/dL (3.5-5.0); Albumin Globulin Ratio 1.6 (1.0-2.8); Alkaline Phosphatase 105 U/L (38-126); Aspartate Aminotransferase 43 IU/L (14-36); BUN Creatinine Ratio 27.9 (6-22); Bilirubin Total 1.9 mg/dL (0.2-1.3); Blood Urea Nitrogen 24 mg/dL (7-17); Carbon Dioxide 29 mmol/L (22-32); Chloride 102 mmol/L (98-107); Estimated Glomerular Filt Rate > 60 mL/min (>60); Globulin 2.6 g/dL (1.7-4.1); Glucose 121 mg/dL (80-110); HEMOLYSIS < 15 (0-50); Sodium 140 mmol/L (137-145); Total Protein 6.8 g/dL (6.3-8.2)
[2022-07-02 07:19] LABS: Alpha Fetoprotein 3.9 ng/mL (0.0-9.2)
== END ==
PROVIDERS: PCP Nurse Practitioner; Referring Provider Internal Medicine Gastroenterology; Visit Provider Internal Medicine Gastroenterology
DX: K74.60 Unspecified cirrhosis of liver (principal); R93.5 Abnormal findings on diagnostic imaging of other abdominal regions, including retroperitoneum; K76.0 Fatty (change of) liver, not elsewhere classified; R74.8 Abnormal levels of other serum enzymes
CPT/HCPCS: 36415; 80053; 82105; 85610

== ENCOUNTER → 2022-07-03 08:54 | Outpatient (CLI) | payer MEDICARE, OTHER, SELFPAY ==
--- NOTE | 2022-07-03 08:57 | DI.MG.S_ITS ---
BILATERAL DIGITAL SCREENING MAMMOGRAM 3D/2D WITH CAD: 07/03/2022 CLINICAL: Routine screening. Family history of breast cancer. Comparison is made to exams dated: 02/21/2021 mammogram, 12/26/2018 mammogram, 12/10/2017 mammogram, 03/13/2021 mammogram - [facility], and 10/16/2015 mammogram - [facility]. Both breasts are heterogeneously dense, which may obscure small masses (category c / 51-75% glandular tissue). Current study was also evaluated with a Computer Aided Detection (CAD) system. There are benign calcifications in both breasts. No significant masses, calcifications, or other findings are seen in either breast. There has been no significant interval change. IMPRESSION: BENIGN There is no mammographic evidence of malignancy. A 1 year screening mammogram is recommended. Based on the Tyrer Cuzick model (a risk assessment model) the patient's lifetime risk is 11.8% and her 10 year risk is 8.2%. According to the ACR, ACS, and NCCN guidelines, an annual breast MRI exam along with mammogram is recommended if the patient's lifetime risk is 20% or greater. This exam was interpreted at Station ID: [id number]. NOTE: For mammograms, a report in lay terms will be sent to the patient. Approximately 15% of breast malignancies will not be visualized mammographically. In the management of a palpable breast mass, a negative mammogram must not discourage biopsy of a clinically suspicious lesion. Electronically Signed By: Everett brito/dyana:07/05/2022 09:02:39 copy to: JOCELYNE MALIN letter sent: Normal Exam ACR BI-RADS Category 2: Benign Finding(s) [id number]
== END ==
PROVIDERS: PCP Nurse Practitioner; Referring Provider Nurse Practitioner; Visit Provider Nurse Practitioner
DX: Z12.31 Encounter for screening mammogram for malignant neoplasm of breast (principal); Z80.3 Family history of malignant neoplasm of breast
CPT/HCPCS: 77063; 77067

== ENCOUNTER → 2022-07-15 07:56 | Outpatient (CLI) | payer MEDICARE, OTHER, SELFPAY ==
[2022-07-15 09:51] LABS: Alanine Aminotransferase 44 IU/L (<35); Albumin Globulin Ratio 1.6 (1.0-2.8); Alkaline Phosphatase 109 U/L (38-126); Aspartate Aminotransferase 39 IU/L (14-36); Bilirubin Total 1.4 mg/dL (0.2-1.3); Blood Urea Nitrogen 20 mg/dL (7-17); Calcium 8.4 mg/dL (8.4-10.2); Carbon Dioxide 27 mmol/L (22-32); Chloride 104 mmol/L (98-107); Cholesterol 161 mg/dL (140-199); Estimated Glomerular Filt Rate > 60 mL/min (>60); Globulin 2.5 g/dL (1.7-4.1); Glucose 131 mg/dL (80-110); HDL Cholesterol 39 mg/dL (40-60); HEMOLYSIS < 15 (0-50); LDL Cholesterol Calculated 99 mg/dL (<100); Sodium 139 mmol/L (137-145); Total Protein 6.5 g/dL (6.3-8.2); Triglycerides 115 mg/dL (35-150)
[2022-07-15 10:10] LABS: Free T4, Direct Thyroxine 1.04 ng/dL (0.78-2.19)
[2022-07-15 10:24] LABS: Thyroid Stimulating Hormone 2.33 uIU/mL (0.47-4.68)
[2022-07-15 12:37] LABS: Creatinine Urine Random 276.8 mg/dL
[2022-07-15 12:43] LABS: Microalbumi Creatinin Ratio Ur 10.8 ug/mg CR (<30)
== END ==
PROVIDERS: PCP Nurse Practitioner; Referring Provider Nurse Practitioner; Visit Provider Nurse Practitioner
DX: R73.03 Prediabetes (principal); E78.2 Mixed hyperlipidemia; K74.60 Unspecified cirrhosis of liver; M81.0 Age-related osteoporosis without current pathological fracture; R79.89 Other specified abnormal findings of blood chemistry
CPT/HCPCS: 36415; 80053; 80061; 82043; 82570; 83036; 84439; 84443; 84481

== ENCOUNTER → 2022-07-28 08:42 | Outpatient (CLI) | payer MEDICARE, OTHER, SELFPAY ==
--- NOTE | 2022-07-28 | DI.US.S_ITS ---
PROCEDURE: US ABDOMEN LIMITED INDICATIONS: CIRRHOSIS TECHNIQUE: Real-time scanning was performed of the abdominal and retroperitoneal organs, with image documentation. COMPARISON: [facility], US, US ABDOMEN COMPLETE, 08/17/2021, 10:10. FINDINGS: Liver: The liver measures 15.2 cm in length and demonstrates a coarse echotexture. Gallbladder: The gallbladder wall measures 1.4 mm in diameter. No stones, sludge, pericholecystic fluid, or sonographic Minor sign. Biliary ducts: Intrahepatic bile ducts are non-dilated. Extrahepatic bile duct caliber measures 6.9 mm. Normal is 6-7 mm or less in diameter, or 10 mm or less post-cholecystectomy. Pancreas: Visualized portions of the pancreas are sonographically normal. The tail of the pancreas is not visualized. Spleen: The spleen measures 17.4 cm in length which is similar in size to the prior study dated August 17, 2021. IMPRESSION: 1. Coarse hepatic echotexture which may be associated with cirrhotic transformation. 2. Stable splenomegaly. Dictated by: Cookie Keller M.D. on 07/28/2022 at 10:00 Approved by: Cookie Keller M.D. on 07/28/2022 at 10:02
== END ==
PROVIDERS: PCP Nurse Practitioner; Referring Provider Internal Medicine Gastroenterology; Visit Provider Internal Medicine Gastroenterology
DX: K74.60 Unspecified cirrhosis of liver (principal); R93.5 Abnormal findings on diagnostic imaging of other abdominal regions, including retroperitoneum; K76.0 Fatty (change of) liver, not elsewhere classified; R16.1 Splenomegaly, not elsewhere classified
CPT/HCPCS: 76705

== ENCOUNTER → 2023-01-13 08:14 | Outpatient (CLI) | payer MEDICARE, SELFPAY ==
--- NOTE | 2023-01-13 08:19 | DI.US.S_ITS ---
PROCEDURE: US ABDOMEN LIMITED INDICATIONS: ABNORMAL LEVELS OF OTHER SERUM ENZYMES TECHNIQUE: Real-time focused scanning was performed of the abdomen, with image documentation. COMPARISON: [facility], , US ABDOMEN LIMITED, 07/28/2022, 9:04. FINDINGS: Liver is within normal limits without focal mass. Gallbladder wall is thickened at 4.6 mm. No cholelithiasis. No biliary ductal dilatation. Pancreas is grossly unremarkable. IMPRESSION: Gallbladder wall thickening, which could indicate cholecystitis in the appropriate clinical setting. Clinical correlation recommended. Dictated by: Neelima De Luna M.D. on 01/13/2023 at 10:24 Approved by: Neelima De Luna M.D. on 01/13/2023 at 10:27
[2023-01-13 09:14] LABS: INR 1.1 (0.9-1.3)
[2023-01-13 09:43] LABS: Alanine Aminotransferase 37 IU/L (<35); Albumin 4.1 g/dL (3.5-5.0); Albumin Globulin Ratio 1.6 (1.0-2.8); Alkaline Phosphatase 77 U/L (38-126); Aspartate Aminotransferase 36 IU/L (14-36); BUN Creatinine Ratio 27.4 (6-22); Bilirubin Total 1.4 mg/dL (0.2-1.3); Blood Urea Nitrogen 23 mg/dL (7-17); Calcium 8.5 mg/dL (8.4-10.2); Carbon Dioxide 30 mmol/L (22-32); Chloride 104 mmol/L (98-107); Estimated Glomerular Filt Rate > 60 mL/min (>60); Globulin 2.5 g/dL (1.7-4.1); Glucose 131 mg/dL (80-110); HEMOLYSIS < 15 (0-50); Potassium 4.3 mmol/L (3.4-5.1); Sodium 140 mmol/L (137-145); Total Protein 6.6 g/dL (6.3-8.2)
[2023-01-14 07:10] LABS: Alpha Fetoprotein 4.5 ng/mL (0.0-9.2)
== END ==
PROVIDERS: PCP Nurse Practitioner; Referring Provider Internal Medicine Gastroenterology; Visit Provider Internal Medicine Gastroenterology
DX: K74.60 Unspecified cirrhosis of liver (principal); K82.8 Other specified diseases of gallbladder
CPT/HCPCS: 36415; 76705; 80053; 82105; 85610

== ENCOUNTER 2023-03-09 08:28 | Day surgery (SDC) | payer MEDICARE, SELFPAY ==
[2023-03-09 08:45] VITALS: BMI 23.8
[2023-03-09 08:50] VITALS: BP 158/79; PULSE 78; RESP 16; TEMP 35.8; O2SAT 99
[2023-03-09] MEDS: LACTATED RINGERS 1,000 ML 42 ML IV (08:57)
--- NOTE | 2023-03-09 09:11 | P.HP_ITS ---
History of Present Illness History of Present Illness Chief complaint: EGD Narrative: Cryptogenic cirrhosis. Need for variceal screening. [facility] Medical History (Updated 07/07/22 @ 10:41 by MARA Lind) Angiectasia Antral gastritis AVM (arteriovenous malformation) of colon Colon polyp Constipation Diverticulosis Diverticulosis, sigmoid Elevated fasting blood sugar Elevated LFTs Helicobacter pylori gastritis Hepatic steatosis Hepatitis A Hiatal hernia Impaired fasting blood sugar Intermittent vomiting Liver cirrhosis Osteoporosis Prediabetes Rectal prolapse Sensorineural hearing loss, bilateral Splenomegaly Thrombocytopenia, idiopathic Surgical History H/O cystoscopy H/O hysterectomy for benign disease History of cataract removal with insertion of prosthetic lens (11/15/16) History of cataract surgery History of rectopexy Social History household members: family Smoking Status: Never smoker alcohol intake: never eating out: rarely or never Type(s) of exercise: regular exercise and advised to exercise at least 150 min/week (moderate intensity aerobic) Meds Home Medications and Allergies Home Medications Medication Instructions Recorded Confirmed Type blood-glucose meter (Blood Glucose #1 ea 08/13/20 07/07/22 Rx Monitoring kit) vitamin E 200 unit capsule 200 unit PO BID #180 caps 09/02/21 03/09/23 Rx lancets 30 gauge and blood glucose #200 ea 06/14/22 07/07/22 Rx strips combo pack alendronate 70 mg tablet 70 mg PO QWEEK #12 tabs 08/26/22 03/09/23 Rx calcium carbonate 600 mg calcium 600 mg PO DAILY 03/09/23 03/09/23 History (1,500 mg) tablet (Calcium) cholecalciferol (vitamin D3) 50 50 mcg PO DAILY 03/09/23 03/09/23 History mcg (2,000 unit) tablet (Vitamin D3) Allergies Allergy/AdvReac Type Severity Reaction Status Date / Time No Known Drug Allergies Allergy Verified 03/09/23 08:39 Exam Vital Signs (past 8 hours): - 03/09/23 08:50 Temperature 96.4 F L Pulse Rate 78 Respiratory Rate 16 Blood Pressure 158/79 H Pulse Oximetry 99 Oxygen Delivery Method Room Air Oxygen Delivery Method Room Air Narrative Exam Narrative: Oropharynx free of lesions Chest clear to auscultation percussion Cardiac exam reveals no S3 or murmur Assessment & Plan Assessment & Plan narrative: Cirrhosis with need for variceal screening. Risks, benefits, alternatives have been explained. Further recommendations will follow-up results of the study.
--- NOTE | 2023-03-09 09:12 | PM.OP.EGD ---
Operative Date/Time/Diagnoses Date of procedure: 03/09/23 Pre-op diagnosis: See indication and findings Procedure & Clinicians Study performed: EGD Indications: Cryptogenic cirrhosis need for variceal screening Surgeon: Sabrina Greene Procedure Notes Procedure in detail: After informed consent was obtained the patient was placed in left lateral decubitus position. The video upper scope was placed into the oropharynx and with the patient's help swelled into the esophagus. The esophagus stomach and duodenum were carefully examined. On withdrawal, retroflexed view the GE junction was performed. The scope was removed. The patient tolerated procedure well. Blood loss none Complications none Sedation mac Findings 1. Three columns of varices beginning at 30 cm and progressing to the GE junction at 35 cm. Three bands were placed 1 on each column. No complications were noted. 2. Small to moderate hiatal hernia 3. Gastropathy portal hypertension 4. Normal duodenal bulb and sweep Patient will follow-up EGD and banding in 3-6 weeks.
[2023-03-09 11:06] VITALS: BP 153/92; PULSE 81; RESP 17; TEMP 36.6; O2SAT 98
[2023-03-09 11:11] VITALS: BP 157/98; PULSE 85; RESP 20; TEMP 36.6; O2SAT 98
[2023-03-09 11:16] VITALS: BP 172/97; PULSE 91; RESP 16; TEMP 36.6; O2SAT 98
[2023-03-09 11:24] VITALS: BP 169/90; PULSE 74; RESP 12; O2SAT 99
[2023-03-09 11:35] VITALS: BP 170/94; PULSE 75; RESP 15; TEMP 36.4; O2SAT 99
== END 2023-03-09 11:50 | disposition home or self-care (01) ==
PROVIDERS: PCP Nurse Practitioner; Referring Provider Internal Medicine Gastroenterology; Visit Provider Internal Medicine Gastroenterology
PROC: 0DJ08ZZ Inspection of Upper Intestinal Tract, Via Natural or Artificial Opening Endoscopic (ICD-10-PCS; CPT 43235; principal; 2023-03-09 09:30)
DX: K74.69 Other cirrhosis of liver (principal); R74.8 Abnormal levels of other serum enzymes; R93.5 Abnormal findings on diagnostic imaging of other abdominal regions, including retroperitoneum; K76.0 Fatty (change of) liver, not elsewhere classified
CPT/HCPCS: 43244; J2704

== ENCOUNTER 2023-05-16 11:38 | Day surgery (SDC) | payer MEDICARE, SELFPAY ==
[2023-05-16] VITALS (8 sets, daily range): BP systolic 105–155; BP diastolic 66–97; PULSE 72–93; RESP 14–18; TEMP 36.1–36.5; O2SAT 94–97; BMI 23.8
--- NOTE | 2023-05-16 11:54 | PM.HP.1 ---
History of Present Illness History of Present Illness Date Patient Seen: 05/16/23 Time Patient Seen: 11:54 Chief complaint: EGD w/poss bx Narrative: History of cirrhosis and varices status post banding. Here for surveillance. [facility] Medical History Angiectasia Antral gastritis AVM (arteriovenous malformation) of colon Colon polyp Constipation Diverticulosis Diverticulosis, sigmoid Elevated fasting blood sugar Elevated LFTs Helicobacter pylori gastritis Hepatic steatosis Hepatitis A Hiatal hernia Impaired fasting blood sugar Intermittent vomiting Liver cirrhosis Osteoporosis Prediabetes Rectal prolapse Sensorineural hearing loss, bilateral Splenomegaly Thrombocytopenia, idiopathic Surgical History H/O cystoscopy H/O hysterectomy for benign disease History of cataract removal with insertion of prosthetic lens (11/15/16) History of cataract surgery History of rectopexy Social History household members: family Smoking Status: Never smoker alcohol intake: never eating out: rarely or never Type(s) of exercise: regular exercise and advised to exercise at least 150 min/week (moderate intensity aerobic) Meds Home Medications and Allergies Home Medications Medication Instructions Recorded Confirmed Type blood-glucose meter (Blood Glucose #1 ea 08/13/20 07/07/22 Rx Monitoring kit) vitamin E 200 unit capsule 200 unit PO BID #180 caps 09/02/21 03/09/23 Rx lancets 30 gauge and blood glucose #200 ea 06/14/22 07/07/22 Rx strips combo pack calcium carbonate 600 mg calcium 600 mg PO DAILY 03/09/23 03/09/23 History (1,500 mg) tablet (Calcium) cholecalciferol (vitamin D3) 50 50 mcg PO DAILY 03/09/23 03/09/23 History mcg (2,000 unit) tablet (Vitamin D3) alendronate 70 mg tablet 70 mg PO QWEEK #12 tabs 05/04/23 Rx Allergies Allergy/AdvReac Type Severity Reaction Status Date / Time No Known Drug Allergies Allergy Verified 03/09/23 08:39 Review of Systems Review of Systems ROS: Yes All systems reviewed with the patient and are negative except as otherwise documented Exam Const General: cooperative HENMT Head: normal to inspection Eyes General: appearance normal, both eyes and all related structures Neck Neck: normal visual inspection Chest Chest: normal inspection of the chest Resp Effort & Inspection: normal respiratory effort Cardio Rate: regular rate GI Inspection: normal to inspection Skin General: no rashes or lesions noted Neuro General: patient alert and patient awake Extrem General: normal to inspection and no pedal edema Psych Appearance: grossly normal Assessment & Plan Assessment & Plan narrative: 72-year-old female with cirrhosis and history of esophageal varices. Surveillance EGD is pursued today.
[2023-05-16] MEDS: LACTATED RINGERS 1,000 ML 42 ML IV (12:09)
--- NOTE | 2023-05-16 12:20 | PM.PREOP ---
Pre-operative Note Interval Note History & Physical reviewed/Exam performed by Physician: Yes Changes to H&P: No ASA Class (for procedural sedation): III
--- NOTE | 2023-05-16 12:49 | PM.OP.EGD ---
Operative Date/Time/Diagnoses Date of procedure: 05/16/23 Time of procedure: 12:49 Pre-op diagnosis: Cirrhosis and a history of varices with banding x3 Post-op diagnosis: same Procedure & Clinicians Study performed: EGD with banding Same procedure as scheduled: Yes Indications: Cirrhosis with a history of varices and banding x3 Surgeon: Tang Bridges Procedure Notes SCOAP/Timeout: Done Procedure in detail: After the risks and benefits were explained, written and verbal informed consent was obtained. The patient was brought into the procedure room and placed into the left lateral decubitus position. Please see anesthesia notes for sedation details. The scope was introduced into the mouth through the bite block and advanced under direct visualization to the 2nd portion of the duodenum. The scope was slowly withdrawn carefully examining the mucosa for any defects or lesions. Retroflexed views were accomplished in the stomach. The stomach was decompressed, the scope was then removed from the patient who tolerated the procedure well. Sedation minutes: 13 Specimen(s): none sent Complications: none Impression: 1. Duodenal: No overt mucosal pathology appreciated throughout. There were some scattered erythema but no ulcerations. 2. Stomach: No ulcers no mass lesions and no overt pathology throughout. No varices identified including retroflexed views of the LES. 3. Esophagus: The squamocolumnar junction correlated with the top of the gastric folds. GEJ was at approximately 34 cm from the incisors. The patient did have evidence of persistently engorged varices in the distal esophagus. This was particularly so in the 9:00 a.m. column. Decision was made for further banding. A band was successfully placed just proximal to the GE junction in the 9:00 a.m. location. This rendered the more proximal element of the variceal columns in the 9 and 6:00 a.m. locations relatively flat and they would not accept a further band. I attempted to suction up the smaller column in the 3:00 a.m. location but this did not fully come up into the banding cap so I released it and did not apply a band in this location. Endoscopic diagnosis Esophageal varices status post banding x1 Post-procedure Plan for aftercare: 1. Full liquid diet today. 2. Soft smoothie diet times 72 hours. 3. Advance to a 2 g sodium diet well chewed thereafter. 4. Repeat EGD for surveillance in approximately 6-8 weeks. Disposition: PACU
== END 2023-05-16 14:06 | disposition home or self-care (01) ==
PROVIDERS: PCP Nurse Practitioner; Referring Provider Internal Medicine Gastroenterology; Visit Provider Internal Medicine Gastroenterology
PROC: 0DJ08ZZ Inspection of Upper Intestinal Tract, Via Natural or Artificial Opening Endoscopic (ICD-10-PCS; CPT 43235; principal; 2023-05-16 13:00)
DX: I85.10 Secondary esophageal varices without bleeding (principal); K74.60 Unspecified cirrhosis of liver
CPT/HCPCS: 43244; J2704

== ENCOUNTER → 2023-07-07 08:31 | Outpatient (CLI) | payer MEDICARE, SELFPAY ==
[2023-07-07 10:14] LABS: Alanine Aminotransferase 77 IU/L (<35); Albumin 4.2 g/dL (3.5-5.0); Albumin Globulin Ratio 1.4 (1.0-2.8); Alkaline Phosphatase 79 U/L (38-126); Aspartate Aminotransferase 59 IU/L (14-36); BUN Creatinine Ratio 36.6 (6-22); Bilirubin Total 1.8 mg/dL (0.2-1.3); Blood Urea Nitrogen 30 mg/dL (7-17); Calcium 8.9 mg/dL (8.4-10.2); Carbon Dioxide 27 mmol/L (22-32); Chloride 104 mmol/L (98-107); Cholesterol 195 mg/dL (140-199); Estimated Glomerular Filt Rate > 60 mL/min (>60); Glucose 140 mg/dL (80-110); HDL Cholesterol 40 mg/dL (40-60); HEMOLYSIS < 15 (0-50); LDL Cholesterol Calculated 117 mg/dL (<100); Potassium 4.2 mmol/L (3.4-5.1); Sodium 140 mmol/L (137-145); Total Protein 7.2 g/dL (6.3-8.2); Triglycerides 190 mg/dL (35-150)
[2023-07-07 15:18] LABS: Hemoglobin A1C% w Est Avg Glu 6.6 % (4.0-6.0)
== END ==
PROVIDERS: PCP Nurse Practitioner; Referring Provider Nurse Practitioner; Visit Provider Nurse Practitioner
DX: R73.03 Prediabetes (principal); R79.89 Other specified abnormal findings of blood chemistry; M81.0 Age-related osteoporosis without current pathological fracture; K74.60 Unspecified cirrhosis of liver; E78.2 Mixed hyperlipidemia; Z79.899 Other long term (current) drug therapy
CPT/HCPCS: 36415; 80053; 80061; 83036

== ENCOUNTER → 2023-08-23 08:50 | Outpatient (CLI) | payer MEDICARE, SELFPAY ==
[2023-08-23 09:37] LABS: INR 1.1 (0.9-1.3)
[2023-08-23 09:48] LABS: Alanine Aminotransferase 54 IU/L (<35); Albumin 3.8 g/dL (3.5-5.0); Albumin Globulin Ratio 1.5 (1.0-2.8); Alkaline Phosphatase 71 U/L (38-126); Aspartate Aminotransferase 45 IU/L (14-36); Bilirubin Total 1.6 mg/dL (0.2-1.3); Blood Urea Nitrogen 24 mg/dL (7-17); Calcium 8.7 mg/dL (8.4-10.2); Carbon Dioxide 30 mmol/L (22-32); Chloride 104 mmol/L (98-107); Estimated Glomerular Filt Rate > 60 mL/min (>60); Globulin 2.5 g/dL (1.7-4.1); Glucose 149 mg/dL (80-110); HEMOLYSIS < 15 (0-50); Potassium 4.1 mmol/L (3.4-5.1); Sodium 138 mmol/L (137-145); Total Protein 6.3 g/dL (6.3-8.2)
[2023-08-24 09:24] LABS: Alpha Fetoprotein 4.4 ng/mL (0.0-9.2)
== END ==
PROVIDERS: PCP Nurse Practitioner; Referring Provider Internal Medicine Gastroenterology; Visit Provider Internal Medicine Gastroenterology
DX: K74.60 Unspecified cirrhosis of liver (principal); R93.5 Abnormal findings on diagnostic imaging of other abdominal regions, including retroperitoneum; K76.0 Fatty (change of) liver, not elsewhere classified; R74.8 Abnormal levels of other serum enzymes
CPT/HCPCS: 36415; 80053; 82105; 85610

== ENCOUNTER → 2023-08-25 15:56 | Outpatient (CLI) | payer MEDICARE, SELFPAY ==
--- NOTE | 2023-08-25 15:57 | DI.MG.S_ITS ---
BILATERAL DIGITAL SCREENING MAMMOGRAM 3D/2D WITH CAD: 08/25/2023 CLINICAL: Routine screening. Family history of breast cancer. Comparison is made to exams dated: 07/03/2022 mammogram, 02/21/2021 mammogram, and 12/26/2018 mammogram - [facility]. Both breasts are heterogeneously dense, which may obscure small masses (category c / 51-75% glandular tissue). Current study was also evaluated with a Computer Aided Detection (CAD) system. There are benign calcifications in both breasts. No significant masses, calcifications, or other findings are seen in either breast. There has been no significant interval change. IMPRESSION: BENIGN There is no mammographic evidence of malignancy. A 1 year screening mammogram is recommended. Based on the Tyrer Cuzick model (a risk assessment model) the patient's lifetime risk is 11.1% and her 10 year risk is 8.4%. According to the ACR, ACS, and NCCN guidelines, an annual breast MRI exam along with mammogram is recommended if the patient's lifetime risk is 20% or greater. This exam was interpreted at Station ID: [id number]. NOTE: For mammograms, a report in lay terms will be sent to the patient. Approximately 15% of breast malignancies will not be visualized mammographically. In the management of a palpable breast mass, a negative mammogram must not discourage biopsy of a clinically suspicious lesion. Electronically Signed By: Timothy mckinnon/dyana:08/26/2023 10:41:13 copy to: JOCELYNE MALIN letter sent: Normal Exam ACR BI-RADS Category 2: Benign Finding(s) 3342F
== END ==
PROVIDERS: PCP Nurse Practitioner; Referring Provider Nurse Practitioner; Visit Provider Nurse Practitioner
DX: Z12.31 Encounter for screening mammogram for malignant neoplasm of breast (principal); Z80.3 Family history of malignant neoplasm of breast
CPT/HCPCS: 77063; 77067

== ENCOUNTER 2023-09-07 11:03 | Day surgery (SDC) | payer OTHER, SELFPAY ==
[2023-09-07] VITALS (7 sets, daily range): BP systolic 107–153; BP diastolic 59–78; PULSE 65–81; RESP 10–18; TEMP 36.1–36.3; O2SAT 95–97; BMI 23.2
[2023-09-07] MEDS: LACTATED RINGERS 1,000 ML 42 ML IV (12:06)
--- NOTE | 2023-09-07 12:36 | PM.HP.1 ---
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 This would be episode 3. Rule out continued esophageal varices [facility] Medical History (Updated 07/26/23 @ 20:23 by MARA Lind) Osteoporosis Prediabetes Hepatitis A Splenomegaly Liver cirrhosis Angiectasia AVM (arteriovenous malformation) of colon Diverticulosis, sigmoid Hepatic steatosis Thrombocytopenia, idiopathic Helicobacter pylori gastritis Impaired fasting blood sugar Elevated fasting blood sugar Elevated LFTs Intermittent vomiting Antral gastritis Hiatal hernia Sensorineural hearing loss, bilateral Colon polyp Diverticulosis Constipation Rectal prolapse Surgical History H/O cystoscopy History of rectopexy H/O hysterectomy for benign disease History of cataract surgery History of cataract removal with insertion of prosthetic lens (11/15/16) Social History household members: family Smoking Status: Never smoker alcohol intake: never eating out: rarely or never Type(s) of exercise: regular exercise and advised to exercise at least 150 min/week (moderate intensity aerobic) Meds Home Medications and Allergies Home Medications Medication Instructions Recorded Confirmed Type vitamin E 200 unit capsule 200 unit PO BID #180 caps 09/02/21 09/07/23 Rx lancets 30 gauge and blood glucose #200 ea 06/14/22 07/07/22 Rx strips combo pack calcium carbonate 600 mg calcium 600 mg PO DAILY 03/09/23 09/07/23 History (1,500 mg) tablet (Calcium) cholecalciferol (vitamin D3) 50 50 mcg PO DAILY 03/09/23 09/07/23 History mcg (2,000 unit) tablet (Vitamin D3) blood-glucose meter (Blood Glucose #1 ea 05/26/23 Rx Monitoring kit) Glucometer #1 ea 07/13/23 07/13/23 Rx Glucose Test Strips #100 ea 07/13/23 07/13/23 Rx Allergies Allergy/AdvReac Type Severity Reaction Status Date / Time No Known Drug Allergies Allergy Verified 09/07/23 11:55 Exam Vital Signs (past 8 hours): - 09/07/23 12:04 Temperature 97.3 F L Pulse Rate 80 Respiratory Rate 18 Blood Pressure 153/78 H Pulse Oximetry 97 Oxygen Delivery Method Room Air Oxygen Delivery Method Room Air Narrative Exam Narrative: Oropharynx free of lesions Chest clear to auscultation percussion Cardiac exam revealed no S3 or murmur Assessment & Plan Assessment & Plan narrative: History of esophageal varices need for further assessment and possible banding. Risks, benefits, alternatives have been explained.
--- NOTE | 2023-09-07 12:37 | PM.OP.EGD ---
Operative Date/Time/Diagnoses Date of procedure: 09/07/23 Pre-op diagnosis: See indication and findings Procedure & Clinicians Study performed: EGD with possible banding Indications: Cryptogenic cirrhosis with esophageal varices Surgeon: Sabrina Greene Procedure Notes Procedure in detail: After informed consent was obtained the patient was placed in left lateral decubitus position. The video upper scope was placed into the oropharynx and with the patient's help swallowed into the esophagus. The esophagus stomach and duodenum were carefully examined. On withdrawal, retroflexed view the GE junction was performed. The scope was removed. The patient tolerated the procedure well. Blood loss none Complications none Sedation mac Findings 1. Most of the esophagus appeared to be normal. Just above the GE junction however there was a circumferential purple appearance and 2 areas of slight nodularity they could represent varices. These 2 areas were treated with the banding kit. 2. Gastropathy of portal hypertension 3. Normal duodenal bulb and sweep I do not think the patient will need follow-up prior to [address] her under recall. She should call if she has any issues.
== END 2023-09-07 13:45 | disposition home or self-care (01) ==
PROVIDERS: PCP Nurse Practitioner; Referring Provider Internal Medicine Gastroenterology; Visit Provider Internal Medicine Gastroenterology
PROC: 0DJ08ZZ Inspection of Upper Intestinal Tract, Via Natural or Artificial Opening Endoscopic (ICD-10-PCS; CPT 43235; principal; 2023-09-07 12:30)
DX: K74.69 Other cirrhosis of liver (principal); I85.10 Secondary esophageal varices without bleeding; K76.6 Portal hypertension; K31.89 Other diseases of stomach and duodenum
CPT/HCPCS: 43244; J2704

== ENCOUNTER → 2023-09-21 15:47 | Outpatient (CLI) | payer OTHER, SELFPAY ==
--- NOTE | 2023-09-21 | DI.US.S_ITS ---
PROCEDURE: US ABDOMEN LIMITED INDICATIONS: NON-ALCOHOLIC FATTY LIVER AND CIRRHOSIS TECHNIQUE: Real-time scanning was performed of the abdominal and retroperitoneal organs, with image documentation. COMPARISON: [facility], , US ABDOMEN LIMITED, 01/13/2023, 8:24. FINDINGS: Liver: The liver measures 12.5 cm in length and demonstrates coarse hepatic echogenicity throughout. Gallbladder: The gallbladder is mildly contracted. The wall measures 3.7 mm in diameter. No stones, sludge, pericholecystic fluid, or sonographic Minor sign. Biliary ducts: Intrahepatic bile ducts are non-dilated. Extrahepatic bile duct caliber measures 7.2 mm. Normal is 6-7 mm or less in diameter, or 10 mm or less post-cholecystectomy. Pancreas: Visualized portions of the pancreas are sonographically normal. Miscellaneous: No free abdominal fluid. The spleen measures 17.9 cm in length. IMPRESSION: 1. Increased hepatic echogenicity noted likely related to fatty infiltration of the liver but cirrhotic transformation could also be considered in the differential. 2. Contracted gallbladder with mildly thickened wall. No cholelithiasis. No other findings to suggest acute cholecystitis. Please correlate with laboratory values. Findings are equivocal for acute cholecystitis. 3. Marked splenomegaly suggesting portal hypertension. Dictated by: Cookie Keller M.D. on 09/21/2023 at 17:23 Approved by: Cookie Keller M.D. on 09/21/2023 at 17:25
== END ==
PROVIDERS: PCP Nurse Practitioner; Referring Provider Internal Medicine Gastroenterology; Visit Provider Internal Medicine Gastroenterology
DX: K74.60 Unspecified cirrhosis of liver (principal); K76.0 Fatty (change of) liver, not elsewhere classified; R16.1 Splenomegaly, not elsewhere classified
CPT/HCPCS: 76705

== ENCOUNTER → 2023-10-12 08:55 | Outpatient (CLI) | payer OTHER, SELFPAY ==
[2023-10-14 11:26] LABS: x Labcorp Estim. Avg Glu (eAG) 140 mg/dL (.); x Labcorp Hemoglobin A1c 6.5 % (4.8-5.6)
== END ==
PROVIDERS: PCP Nurse Practitioner; Referring Provider Nurse Practitioner; Visit Provider Nurse Practitioner
DX: E78.2 Mixed hyperlipidemia (principal); R73.03 Prediabetes
CPT/HCPCS: 36415; 83036

== ENCOUNTER → 2023-10-12 09:35 | Outpatient (CLI) | payer OTHER, SELFPAY ==
[2023-10-14 15:52] LABS: Fecal Immunochemical Test Positive (Negative)
== END ==
PROVIDERS: PCP Nurse Practitioner; Referring Provider Nurse Practitioner; Visit Provider Nurse Practitioner
DX: Z12.11 Encounter for screening for malignant neoplasm of colon (principal); E78.2 Mixed hyperlipidemia; R73.03 Prediabetes
CPT/HCPCS: 36415; 82274; 83036

== ENCOUNTER 2023-12-12 06:44 | Day surgery (SDC) | payer MEDICARE, SELFPAY ==
[2023-12-12] VITALS (9 sets, daily range): BP systolic 98–139; BP diastolic 51–77; PULSE 68–86; RESP 12–14; TEMP 36.2–36.4; O2SAT 96–99
--- NOTE | 2023-12-12 | PATH_ITS ---
[facility] Accession Number: [id number] No. of containers..06 Tissue . 01 Material submitted: . PART A: ileum - TERMINAL ILEUM PART B: colon - ASCENDING COLON PART C: colon - ASCENDING COLON POLYPS PART D: colon - SIGMOID PART E: rectum - RECTAL PART F: rectum - RECTAL POLYP . 01 Diagnosis: A. TERMINAL ILEUM, BIOPSY: Small bowel mucosa with no diagnostic abnormality. Negative for active inflammation, dysplasia, and malignancy. . B. ASCENDING COLON, BIOPSY: Colonic mucosa with focal erosion and frequent small dilated vascular spaces. Please see comment. Negative for features of chronic or microscopic colitis. Negative for granulomas, dysplasia, and malignancy. . C. ASCENDING COLON, POLYP X2: Tubular adenomas. . D. SIGMOID COLON, BIOPSIES: Colonic mucosa with no diagnostic abnormality. Negative for active, chronic, and microscopic colitis. Negative for dysplasia and malignancy. . E. RECTUM, BIOPSY: Hyperplastic rectal mucosa with features suggestive of mucosal prolapse and focally prominent mucosal capillaries. Please see comment. Negative for active, chronic or microscopic colitis. Negative for dysplasia or malignancy. . F. RECTUM, POLYP: Hyperplastic polyp. V 12/21/2023 1651 Local . 01 Comment: B. The ascending colon biopsies show frequent dilated vascular spaces and focal erosion which could be compatible with the reported clinical history of portal hypertension. The differential diagnosis also includes vascular ectasia. . E. The rectal biopsy shows features suggestive of mucosal prolapse; however, the presence of focally prominent mucosal capillaries could also be compatible with vascular ectasia or vascular changes due to portal hypertension. Correlation with clinical history and endoscopic impression recommended. . 01 Electronically signed: . Candace Nino MD, Pathologist NPI- [id number] . 01 Gross description: . Part A: TERMINAL ILEUM: Received in formalin are 3 fragment(s) of bergman, soft tissue measuring 0.1 x 0.1 x 0.1 cm to 0.3 x 0.3 x 0.2 cm submitted entirely in 1 cassette(s) Part B: ASCENDING COLON: Received in formalin are 2 fragment(s) of bergman, soft tissue measuring 0.3 x 0.3 x 0.2 cm to 0.4 x 0.4 x 0.2 cm submitted entirely in 1 cassette(s) Part C: ASCENDING COLON POLYPS: Received in formalin are 2 fragment(s) of bergman, soft tissue measuring 0.2 x 0.2 x 0.2 cm to 0.3 x 0.3 x 0.3 cm submitted entirely in 1 cassette(s) Part D: SIGMOID: Received in formalin are 2 fragment(s) of bergman, soft tissue measuring 0.2 x 0.2 x 0.1 cm to 0.6 x 0.2 x 0.2 cm submitted entirely in 1 cassette(s) Part E: RECTAL: Received in formalin are 2 fragment(s) of bergman, soft tissue measuring 0.2 x 0.1 x 0.1 cm to 0.3 x 0.2 x 0.2 cm submitted entirely in 1 cassette(s) Part F: RECTAL POLYP: Received in formalin is 1 fragment(s) of bergman, soft tissue measuring 0.4 x 0.4 x 0.2 cm submitted entirely in 1 cassette(s) /KAYLEEN 12/14/2023 1913 Local . 01 Microscopic: . HHV8 immunohistochemical stains were performed on blocks B and E in order to evaluate for nuclear reactivity and are both negative, excluding an HHV8 driven vascular neoplasm. The control stain showed appropriate reactivity. . * This test was developed and its performance characteristics determined by [employer]. It has not been cleared or approved by the U.S. Food and Drug Administration. The FDA has determined that such clearance or approval is not necessary. This test is used for clinical purposes. It should not be regarded as investigational or for research. . 01 Pathologist provided ICD-10: D12.2, K62.1 . 01 CPT . 733713, 747755, 670727, 567251, 666043, 653956, L13831 Specimen Comment: A courtesy copy of this report has been sent to [phone] Performed at: 01 [facility] [address], [place], [place] [id number] MD Kristian Barrera MD Phone: [phone]
[2023-12-12] MEDS: LACTATED RINGERS 1,000 ML 42 ML IV ×2 (07:30→09:45)
--- NOTE | 2023-12-12 07:36 | P.HP_ITS ---
History of Present Illness History of Present Illness Date Patient Seen: 12/12/23 Time Patient Seen: 07:36 Chief complaint: Dx Colonoscopy w/poss bx Narrative: Carla is a 73-year-old woman with a recent positive fit test who is here for her colonoscopy. Please see the office note from October for details. [facility] Medical History Osteoporosis Prediabetes Hepatitis A Splenomegaly Liver cirrhosis Angiectasia AVM (arteriovenous malformation) of colon Diverticulosis, sigmoid Hepatic steatosis Thrombocytopenia, idiopathic Helicobacter pylori gastritis Impaired fasting blood sugar Elevated fasting blood sugar Elevated LFTs Intermittent vomiting Antral gastritis Hiatal hernia Sensorineural hearing loss, bilateral Colon polyp Diverticulosis Constipation Rectal prolapse Surgical History H/O cystoscopy History of rectopexy H/O hysterectomy for benign disease History of cataract surgery History of cataract removal with insertion of prosthetic lens (11/15/16) Social History household members: family Smoking Status: Never smoker alcohol intake: never eating out: rarely or never Type(s) of exercise: regular exercise and advised to exercise at least 150 min/week (moderate intensity aerobic) Meds Home Medications and Allergies Home Medications Medication Instructions Recorded Confirmed Type vitamin E 200 unit capsule 200 unit PO BID #180 caps 09/02/21 12/12/23 Rx lancets 30 gauge and blood glucose #200 ea 06/14/22 11/07/23 Rx strips combo pack calcium carbonate 600 mg calcium 600 mg PO DAILY 03/09/23 12/12/23 History (1,500 mg) tablet (Calcium) cholecalciferol (vitamin D3) 50 50 mcg PO DAILY 03/09/23 12/12/23 History mcg (2,000 unit) tablet (Vitamin D3) blood-glucose meter (Blood Glucose #1 ea 05/26/23 11/07/23 Rx Monitoring kit) Glucometer #1 ea 07/13/23 11/07/23 Rx Glucose Test Strips #100 ea 07/13/23 11/07/23 Rx Allergies Allergy/AdvReac Type Severity Reaction Status Date / Time No Known Drug Allergies Allergy Verified 11/07/23 13:42 Exam Vital Signs (past 8 hours): - 12/12/23 07:07 Temperature 97.5 F L Pulse Rate 79 Respiratory Rate 14 Blood Pressure 139/71 Pulse Oximetry 97 Oxygen Delivery Method Room Air Oxygen Delivery Method Room Air Const General: healthy appearing Resp Effort & Inspection: normal respiratory effort Assessment & Plan Assessment and plan (1) Positive FIT (fecal immunochemical test): Status: Acute Plan We reviewed the risks and benefits of colonoscopy for colon cancer screening and a positive fit test and she would like to proceed.
--- NOTE | 2023-12-12 08:22 | PM.OP.COLON ---
Operative Date/Time/Diagnoses Date of procedure: 12/12/23 Time of procedure: 08:22 Pre-op diagnosis: Positive fit test Post-op diagnosis: same Procedure & Clinicians Study performed: Colonoscopy Same procedure as scheduled: Yes Surgeon: Elmo Hansen Procedure Notes Procedure in detail: Surgeon: Elmo Hansen MD Anesthesia: Bella Ramos CRNA Procedure: The patient was brought to the endoscopy suite, placed in left lateral decubitus position. The patient was connected to monitoring devices. A time-out was performed. Sedation was administered. Once the patient was adequately sedated, a digital rectal exam was performed and was normal. The scope was then inserted and advanced to the cecum where the appendiceal orifice was identified and photographed. The scope was then slowly withdrawn over greater than 6 minutes. The terminal ileum was intubated and there were some patches erythema within the mucosa. Random biopsies were taken with Jumbo forceps from the erythematous mucosa. The scope was withdrawn into the colon. There were more patches of erythema throughout the ascending colon and random biopsies were taken with Jumbo forceps. There were 2 small polyps in the ascending colon removed with a cold snare and sent together. There was some more mild erythema in the sigmoid colon. More random biopsies were taken from the sigmoid colon with Jumbo forceps there was more erythema in the rectum comparable to the ascending colon and biopsies were taken with Jumbo forceps. There was a 3 mm rectal polyp removed with a cold snare. The scope was retroflexed in the rectum. No other abnormalities were noted. The scope was straightened and removed. The patient was awakened and brought to recovery. Scope withdrawal time: 25 minutes Sedation time: 37 minutes EBL: 10 mL Findings: Patchy erythema in the terminal ileum, ascending colon and rectum and 2 small polyps in the ascending colon and 1 small polyp in the rectum Post-procedure Disposition: PACU
--- NOTE | 2023-12-12 09:46 | SUR.PHASEII ---
Dr Hansen notified of rectal bleeding. Stated he would expect blood on the pad for the next few hours. Bella DAMICO notified of pt dizziness while getting dressed and VS WNL. Will give 500ml LR.
--- NOTE | 2023-12-12 09:48 | SUR.PHASEII ---
Pt get dressed. Needed assistance due to dizziness. See note, MD notified. Resting with warm blanket. Tolerated juice.
--- NOTE | 2023-12-12 10:08 | SUR.PHASEII ---
Pt states dizziness is better. Resting until daughter can molded goods spot picker.
--- NOTE | 2023-12-12 10:56 | SUR.PHASEII ---
1039 Pt discharged to home after getting up to the BR to void, steady on feet. VSS. DC instructions reviewed with DTR on phone
== END 2023-12-12 10:35 | disposition home or self-care (01) ==
PROVIDERS: PCP Nurse Practitioner; Referring Provider Surgery; Visit Provider Surgery
PROC: 0DJD8ZZ Inspection of Lower Intestinal Tract, Via Natural or Artificial Opening Endoscopic (ICD-10-PCS; CPT 45378; principal; 2023-12-12 07:45)
DX: Z12.11 Encounter for screening for malignant neoplasm of colon (principal); R19.5 Other fecal abnormalities; D12.2 Benign neoplasm of ascending colon; K62.1 Rectal polyp
CPT/HCPCS: 45385; 45380; J2704

== ENCOUNTER → 2024-05-02 09:22 | Outpatient (CLI) | payer MEDICARE, SELFPAY ==
[2024-05-02 10:25] LABS: INR 1.2 (0.9-1.3)
[2024-05-02 10:40] LABS: Alanine Aminotransferase 44 IU/L (<35); Albumin 3.6 g/dL (3.5-5.0); Albumin Globulin Ratio 1.6 (1.0-2.8); Alkaline Phosphatase 85 U/L (38-126); Aspartate Aminotransferase 50 IU/L (14-36); BUN Creatinine Ratio 22.2 (6-22); Bilirubin Total 2.1 mg/dL (0.2-1.3); Blood Urea Nitrogen 20 mg/dL (7-17); Calcium 8.2 mg/dL (8.4-10.2); Carbon Dioxide 26 mmol/L (22-32); Chloride 105 mmol/L (98-107); Estimated Glomerular Filt Rate > 60 mL/min (>60); Globulin 2.3 g/dL (1.7-4.1); Glucose 127 mg/dL (80-110); HEMOLYSIS < 15 (0-50); Potassium 4.2 mmol/L (3.4-5.1); Sodium 137 mmol/L (137-145); Total Protein 5.9 g/dL (6.3-8.2)
== END ==
PROVIDERS: PCP Nurse Practitioner; Referring Provider Internal Medicine Gastroenterology; Visit Provider Internal Medicine Gastroenterology
DX: I85.00 Esophageal varices without bleeding (principal); K74.60 Unspecified cirrhosis of liver; R93.5 Abnormal findings on diagnostic imaging of other abdominal regions, including retroperitoneum; K76.0 Fatty (change of) liver, not elsewhere classified; R74.8 Abnormal levels of other serum enzymes
CPT/HCPCS: 36415; 80053; 82105; 85610

== ENCOUNTER → 2024-05-31 08:06 | Outpatient (CLI) | payer MEDICARE, SELFPAY ==
[2024-05-31 09:17] LABS: Add Manual Diff / Slide Review NO; Basophils Absolute Auto 0 /uL (0-100); Basophils Percent Auto 0.4 % (0-2); Eosinophils Absolute Auto 200 /uL (0-450); Eosinophils Percent Auto 3.4 % (2-4); Hematocrit 41.2 % (36-46); Hemoglobin 13.8 g/dL (12.0-16.0); Lymphocytes Absolute Auto 1500 /uL (1100-4500); Lymphocytes Percent Auto 25.6 % (25-40); Mean Corpuscular HGB Conc 33.6 % (30-36); Mean Corpuscular Volume 83.3 fL (80-100); Monocytes Absolute Auto 500 /uL (0-900); Monocytes Percent Auto 8.3 % (3-14); Neutrophils Absolute Auto 3600 /uL (1500-7000); Neutrophils Percent Auto 62.3 % (50-75); Platelet Count 70 X10^3/uL (150-400); Red Blood Cell Count 4.95 X10^6/uL (4.0-5.2); Red Cell Distribution Width 15.5 % (11.6-14.8); White Blood Cell Count 5.8 X10^3/uL (4.5-11.0)
[2024-05-31 09:59] LABS: Cholesterol 153 mg/dL (140-199); HDL Cholesterol 39 mg/dL (40-60); LDL Cholesterol Calculated 95 mg/dL (<100); Triglycerides 95 mg/dL (35-150)
[2024-05-31 10:07] LABS: Hemoglobin A1C% w Est Avg Glu 5.8 % (4.0-6.0)
== END ==
PROVIDERS: PCP Family Medicine; Referring Provider Family Medicine; Visit Provider Family Medicine
DX: R73.03 Prediabetes (principal); R79.89 Other specified abnormal findings of blood chemistry; Z13.220 Encounter for screening for lipoid disorders; E78.5 Hyperlipidemia, unspecified
CPT/HCPCS: 36415; 80061; 83036; 85025

== ENCOUNTER → 2024-06-01 06:52 | Outpatient (CLI) | payer MEDICARE, SELFPAY ==
--- NOTE | 2024-06-01 06:53 | DI.US.S_ITS ---
PROCEDURE: US ABDOMEN LIMITED INDICATIONS: CIRRHOSIS. HEPATITIS. SPLENOMEGALY. HCC SCREENING. TECHNIQUE: Real-time scanning was performed of the abdominal and retroperitoneal organs, with image documentation. COMPARISON: [facility], , US ABDOMEN LIMITED, 09/21/2023, 16:11. FINDINGS: Liver: Liver is normal in size and coarse and heterogeneous in echotexture. Gallbladder: Mild gallbladder wall thickening measuring 4.3 millimeters. No gallstones. No pericholecystic edema. Negative sonographic Minor's sign. Biliary ducts: Intrahepatic bile ducts are non-dilated. Extrahepatic bile duct caliber measures 6.1 mm. Normal is 6-7 mm or less in diameter, or 10 mm or less post-cholecystectomy. Pancreas: Visualized portions of the pancreas are sonographically normal. Tail is not well seen. Spleen: Enlarged measuring up to 16.5 centimeters. Miscellaneous: No free abdominal fluid. IMPRESSION: Coarsened and heterogeneous echotexture of the liver which is normal in size. Findings are consistent with chronic liver disease such as cirrhosis, recommend clinical correlation. Mild gallbladder wall thickening which is nonspecific in the setting of chronic liver disease. No gallstones or pericholecystic fluid. Splenomegaly, likely secondary to portal hypertension. Dictated by: Farhat Gonzalez M.D. on 06/01/2024 at 8:56 Approved by: Farhat Gonzalez M.D. on 06/01/2024 at 9:00
== END ==
PROVIDERS: PCP Family Medicine; Referring Provider Internal Medicine Gastroenterology; Visit Provider Internal Medicine Gastroenterology
DX: K74.60 Unspecified cirrhosis of liver (principal); R16.1 Splenomegaly, not elsewhere classified
CPT/HCPCS: 76705

== ENCOUNTER → 2024-06-26 09:26 | Outpatient (CLI) | payer MEDICARE, SELFPAY ==
--- NOTE | 2024-06-26 09:27 | DI.RAD.S_ITS ---
PROCEDURE: XR DEXA AXIAL SKELETON INDICATIONS: menopausal, osteoporosis COMPARISON: [facility], CR, XR DEXA AXIAL SKELETON, 06/25/2022, 10:51. [facility], CR, XR DEXA AXIAL SKELETON, 07/03/2019, 9:49. FINDINGS: Lumbar Spine: Bone mineral density 0.773 g/cm2, T score -2.5. Left Hip: Bone mineral density 0.801 g/cm2, T score -1.2. Left Femoral Neck: Bone mineral density 0.589 g/cm2, T score -2.3. Right Hip: Bone mineral density 0.836 g/cm2, T score -0.9. Right Femoral Neck: Bone mineral density 0.651 g/cm2, T score -1.8. Fracture Risk Calculation (when applicable): 10-year fracture risk of a major osteoporotic fracture 14 percent and of a hip fracture 3.5 percent. (T score greater or equal to -1.0 to: NORMAL) (T score from -1.1 to -2.4: OSTEOPENIA) (T score less than or equal to -2.5: OSTEOPOROSIS) IMPRESSION: Osteoporosis. Follow-up guidelines as follows: Osteoporosis: Consider a repeat DEXA and Vertebral Fracture Assessment (VFA) exam in 2 years or sooner if medically necessary, to reassess this patient's status. Osteopenia: Consider a repeat DEXA in 2-3 years to reassess this patient's status, or if there is a new clinical indication. Normal: Consider a repeat DEXA in 5 years or sooner, or if there is a new clinical indication. All treatment decisions require clinical judgment and consideration of individual patient factors, including patient preferences, comorbidities, previous drug use, risk factors not captured in the FRAX model (e.g., frailty, falls, vitamin D deficiency, increased bone turnover, interval significant decline in bone density ) and possible under- or over-estimation of fracture risk by FRAX. In addition, the NOF Guide recommends that FDA-approved medical therapies be considered in postmenopausal women and men age >= 50 years with a: * Hip or vertebral (clinical or morphometric) fracture * T-score of <=-2.5 at the spine or hip * Ten-year fracture probability by FRAX of >= 3% for hip fracture or >=20% for major osteoporotic fracture. People with diagnosed cases of osteoporosis or at high risk for fracture should have regular bone mineral density tests. For patients eligible for Medicare, routine testing is allowed once every 2 years. The testing frequency can be increased to one year for patients who have rapidly progressing disease, those who are receiving or discontinuing medical therapy to restore bone mass, or have additional risk factors. Dictated by: Everett Caraballo M.D. on 06/26/2024 at 14:50 Approved by: Everett Caraballo M.D. on 06/26/2024 at 14:53
== END ==
PROVIDERS: PCP Family Medicine; Referring Provider Nurse Practitioner; Visit Provider Nurse Practitioner
DX: M81.0 Age-related osteoporosis without current pathological fracture (principal); N95.8 Other specified menopausal and perimenopausal disorders
CPT/HCPCS: 77080

== ENCOUNTER → 2024-08-27 13:39 | Outpatient (CLI) | payer MEDICARE, SELFPAY ==
--- NOTE | 2024-08-27 | DI.MG.S_ITS ---
BILATERAL DIGITAL SCREENING MAMMOGRAM 3D/2D WITH CAD: 08/27/2024 CLINICAL: Routine screening. Family history of breast cancer. Comparison is made to exams dated: 08/25/2023 mammogram, 07/03/2022 mammogram, 03/13/2021 mammogram, and 02/21/2021 mammogram - [facility]. The breasts are heterogeneously dense, which may obscure small masses (category c / 51-75% glandular tissue). Current study was also evaluated with a Computer Aided Detection (CAD) system. There are benign calcifications in both breasts. No significant masses, calcifications, or other findings are seen in either breast. There has been no significant interval change. IMPRESSION: BENIGN There is no mammographic evidence of malignancy. A 1 year screening mammogram is recommended. Based on the Tyrer Cuzick model (a risk assessment model) the patient's lifetime risk is 10.5% and her 10 year risk is 8.6%. According to the ACR, ACS, and NCCN guidelines, an annual breast MRI exam along with mammogram is recommended if the patient's lifetime risk is 20% or greater. This exam was interpreted at Station ID: [id number]. NOTE: For mammograms, a report in lay terms will be sent to the patient. Approximately 15% of breast malignancies will not be visualized mammographically. In the management of a palpable breast mass, a negative mammogram must not discourage biopsy of a clinically suspicious lesion. Electronically Signed By: Bri galvez/dyana:08/27/2024 14:47:46 copy to: JOCELYNE MALIN letter sent: Normal Exam ACR BI-RADS Category 2: Benign
== END ==
PROVIDERS: PCP Family Medicine; Referring Provider Family Medicine; Visit Provider Family Medicine
DX: Z12.31 Encounter for screening mammogram for malignant neoplasm of breast (principal); Z80.3 Family history of malignant neoplasm of breast; R92.333 Mammographic heterogeneous density, bilateral breasts
CPT/HCPCS: 77063; 77067

== ENCOUNTER → 2024-10-19 07:51 | Outpatient (CLI) | payer MEDICARE, SELFPAY ==
[2024-10-19 08:47] LABS: Add Manual Diff / Slide Review NO; Basophils Absolute Auto 0 /uL (0-100); Basophils Percent Auto 0.3 % (0-2); Eosinophils Absolute Auto 100 /uL (0-450); Eosinophils Percent Auto 3.3 % (2-4); Hematocrit 41.7 % (36-46); Lymphocytes Absolute Auto 1000 /uL (1100-4500); Lymphocytes Percent Auto 22.6 % (25-40); Mean Corpuscular HGB Conc 33.6 % (30-36); Mean Corpuscular Hemoglobin 28.3 PG (26-34); Mean Corpuscular Volume 84.4 fL (80-100); Monocytes Absolute Auto 300 /uL (0-900); Monocytes Percent Auto 7.4 % (3-14); Neutrophils Absolute Auto 3000 /uL (1500-7000); Neutrophils Percent Auto 66.4 % (50-75); Platelet Count 44 X10^3/uL (150-400); Red Blood Cell Count 4.94 X10^6/uL (4.0-5.2); Red Cell Distribution Width 14.9 % (11.6-14.8); White Blood Cell Count 4.6 X10^3/uL (4.5-11.0)
[2024-10-19 08:49] LABS: INR 1.1 (0.9-1.3); Prothrombin Time 12.6 SECONDS (9.4-12.5)
[2024-10-19 09:06] LABS: Hemoglobin A1C% w Est Avg Glu 5.7 % (4.0-6.0)
[2024-10-19 09:10] LABS: Alanine Aminotransferase 66 IU/L (<35); Albumin 4.1 g/dL (3.5-5.0); Albumin Globulin Ratio 1.7 (1.0-2.8); Alkaline Phosphatase 79 U/L (38-126); Aspartate Aminotransferase 71 IU/L (14-36); BUN Creatinine Ratio 33.7 (6-22); Bilirubin Total 1.7 mg/dL (0.2-1.3); Blood Urea Nitrogen 30 mg/dL (7-17); Calcium 9.2 mg/dL (8.4-10.2); Carbon Dioxide 28 mmol/L (22-32); Chloride 105 mmol/L (98-107); Estimated Glomerular Filt Rate > 60 mL/min (>60); Globulin 2.4 g/dL (1.7-4.1); Glucose 122 mg/dL (80-110); HEMOLYSIS < 15 (0-50); Potassium 4.5 mmol/L (3.4-5.1); Sodium 140 mmol/L (137-145); Total Protein 6.5 g/dL (6.3-8.2)
== END ==
PROVIDERS: PCP Family Medicine; Referring Provider Family Medicine; Visit Provider Family Medicine
DX: E78.5 Hyperlipidemia, unspecified (principal); K74.60 Unspecified cirrhosis of liver; R73.03 Prediabetes; D69.3 Immune thrombocytopenic purpura
CPT/HCPCS: 36415; 80053; 82105; 83036; 85025; 85610

== ENCOUNTER → 2024-10-30 07:10 | Outpatient (CLI) | payer MEDICARE, SELFPAY ==
--- NOTE | 2024-10-30 07:11 | DI.US.S_ITS ---
PROCEDURE: US ABDOMEN LIMITED INDICATIONS: Cirrhosis, hepatitis, splenomegaly, HCC screening TECHNIQUE: Real-time scanning was performed of the abdominal and retroperitoneal organs, with image documentation. COMPARISON: None. FINDINGS: Liver: Liver is normal in size and homogeneous in echotexture. Liver is diffusely echogenic. Main hepatic vein measures 1.1 centimeters with hepatopetal flow. Gallbladder: No gallstones. No wall thickening. No pericholecystic edema. Negative sonographic Minor's sign. Biliary ducts: Intrahepatic bile ducts are non-dilated. Extrahepatic bile duct caliber measures 5.8 mm. Normal is 6-7 mm or less in diameter, or 10 mm or less post-cholecystectomy. Pancreas: Visualized portions of the pancreas are sonographically normal. Miscellaneous: No free abdominal fluid. Spleen is enlarged measuring 18.5 centimeters in long axis. IMPRESSION: Echogenic liver compatible with reported history of multiple sclerosis. No focal hepatic mass. Splenomegaly. Dictated by: Shelbi Meyers MD, PhD on 10/30/2024 at 11:39 Approved by: Shelbi Meyers MD, PhD on 10/30/2024 at 11:40
== END ==
LOC: US 07:11
PROVIDERS: PCP Family Medicine; Referring Provider Family Medicine; Visit Provider Family Medicine
DX: K74.69 Other cirrhosis of liver (principal); R79.89 Other specified abnormal findings of blood chemistry; R16.1 Splenomegaly, not elsewhere classified
CPT/HCPCS: 76705

== ENCOUNTER 2024-11-21 07:05 | Day surgery (SDC) | payer MEDICARE, SELFPAY ==
[2024-11-21] MEDS: LACTATED RINGERS 1,000 ML 42 ML IV (07:24)
[2024-11-21 07:41] VITALS: BP 134/80; PULSE 73; RESP 16; TEMP 36.4; O2SAT 99
--- NOTE | 2024-11-21 09:32 | PM.PREOP ---
Pre-operative Note COVID-19 COVID-19 status: Not tested Interval Note History & Physical reviewed/Exam performed by Physician: Yes Changes to H&P: No ASA Class (for procedural sedation): III
--- NOTE | 2024-11-21 09:33 | P.OP.EGD&C_ITS ---
Operative Date/Time/Diagnoses Date of procedure: 11/21/24 Pre-op diagnosis: See indication and findings Procedure & Clinicians Study performed: EGD and possible banding Same procedure as scheduled: Yes Surgeon: Sabrina Greene Procedure Notes Procedure in detail: After informed consent was obtained the patient was placed in left lateral dec ubitus position. The video upper scope was placed into the oropharynx and with the patient's help swallowed into the esophagus. The esophagus stomach and duodenal were carefully examined. On withdrawal, retroflexed view the GE junction was performed. The scope was removed. The patient tolerated procedure well. Blood loss none Complications none Sedation mac Findings 1.
--- NOTE | 2024-11-21 09:52 | PM.OP.EGD ---
Operative Date/Time/Diagnoses Date of procedure: 11/21/24 Pre-op diagnosis: See indication and findings Procedure & Clinicians Study performed: EGD with banding Same procedure as scheduled: Yes Indications: History of esophageal varices need for follow-up banding Surgeon: Sabrina Greene Procedure Notes Procedure in detail: After informed consent was obtained the patient was placed in left lateral decubitus position. The video upper scope was placed into the oropharynx and with the patient's help swelled into the esophagus. The esophagus stomach and duodenal were carefully examined. On withdrawal, retroflexed view the GE junction was performed. The scope was removed. The patient tolerated procedure well. Blood loss none Complications none Sedation mac Findings 1. Distal 2 cm of the esophagus with 1 large and 1 small varix. Using the banding kit these were completely treated 2. Gastropathy of portal hypertension 3. Normal duodenal bulb and sweep I would suggest that patient have follow-up endoscopy in 3 months to ensure that these varices are adequately treated.
[2024-11-21 09:55] VITALS: BP 109/53; PULSE 79; RESP 16; O2SAT 97
[2024-11-21 09:59] VITALS: BP 111/55; PULSE 77; RESP 16; O2SAT 97
[2024-11-21 10:04] VITALS: BP 116/64; PULSE 75; RESP 14; O2SAT 97
[2024-11-21 10:10] VITALS: BP 136/79; PULSE 85; RESP 14; TEMP 36.4; O2SAT 97
[2024-11-21 10:17] VITALS: BP 136/80; PULSE 83; RESP 15; TEMP 36.7; O2SAT 98
== END 2024-11-21 10:36 | disposition home or self-care (01) ==
PROVIDERS: PCP Family Medicine; Referring Provider Internal Medicine Gastroenterology; Visit Provider Internal Medicine Gastroenterology
PROC: 0DJ08ZZ Inspection of Upper Intestinal Tract, Via Natural or Artificial Opening Endoscopic (ICD-10-PCS; CPT 43244; principal; 2024-11-21 08:30)
DX: I85.10 Secondary esophageal varices without bleeding (principal); K74.69 Other cirrhosis of liver; D69.6 Thrombocytopenia, unspecified; K76.6 Portal hypertension; K31.89 Other diseases of stomach and duodenum
CPT/HCPCS: 43244; 82962; J2704

== ENCOUNTER 2025-02-20 08:48 | Day surgery (SDC) | payer MEDICARE, SELFPAY ==
[2025-02-20 12:06] VITALS: BP 137/76; PULSE 70; RESP 14; TEMP 36.2; O2SAT 99
--- NOTE | 2025-02-20 12:06 | PM.HP.IH.1 ---
History of Present Illness History of Present Illness Date Patient Seen: 02/20/25 Chief complaint: EGD w/poss bx Narrative: History of esophageal varices status post 1st banding in October need for follow-up evaluation and possible banding. [facility] Medical History (Updated 11/15/24 @ 09:31 by Sabrina Greene MD) Splenomegaly Osteoporosis Prediabetes Hepatitis A Liver cirrhosis Angiectasia AVM (arteriovenous malformation) of colon Diverticulosis, sigmoid Hepatic steatosis Thrombocytopenia, idiopathic Helicobacter pylori gastritis Impaired fasting blood sugar Elevated fasting blood sugar Elevated LFTs Intermittent vomiting Antral gastritis Hiatal hernia Sensorineural hearing loss, bilateral Colon polyp Diverticulosis Constipation Rectal prolapse Surgical History H/O cystoscopy History of rectopexy H/O hysterectomy for benign disease History of cataract surgery History of cataract removal with insertion of prosthetic lens (11/15/16) Social History household members: family alcohol intake: never eating out: rarely or never Type(s) of exercise: regular exercise and advised to exercise at least 150 min/week (moderate intensity aerobic) Meds Home Medications and Allergies Home Medications ?Medication ?Instructions ?Recorded ?Confirmed ?Type calcium carbonate (Calcium 600) 600 mg PO DAILY 03/09/23 02/20/25 History cholecalciferol (vitamin D3) 50 50 mcg PO DAILY 03/09/23 02/20/25 History mcg (2,000 unit) tablet (Vitamin D3) blood-glucose meter (Blood Glucose #1 ea 05/26/23 11/15/24 Rx Monitoring kit) latanoprost 0.005 % eye drops drp EYE-BOTH 05/30/24 11/15/24 History vitamin E 200 unit capsule 200 unit PO BID 05/30/24 02/20/25 History Glucometer #1 ea 06/26/24 11/15/24 Rx Glucose Test Strips #100 ea 10/12/24 11/15/24 Rx lancets 30 gauge and blood glucose #200 ea 10/12/24 11/15/24 Rx strips combo pack Allergies Allergy/AdvReac Type Severity Reaction Status Date / Time No Known Drug Allergies Allergy Verified 02/20/25 12:01 Exam Narrative Exam Narrative: Oropharynx free of lesions Assessment & Plan Assessment & Plan narrative: History of esophageal varices need to reassess for possible repeat banding. Risks, benefits, alternatives have been explained. Time-Based Coding :: [TOTAL MINUTES] spent with patient and on the chart (including review of chart, obtaining history, exam, reviewing outside data, placing orders, documenting exam and treatment plan, and counseling patient) on [DATE]. [employer] Document charge(s): No
--- NOTE | 2025-02-20 12:08 | PM.OP.EGD ---
Operative Date/Time/Diagnoses Date of procedure: 02/20/25 Time of procedure: 12:52 Pre-op diagnosis: See indication and findings Post-op diagnosis: same Procedure & Clinicians Study performed: EGD Same procedure(s) as scheduled: Yes Indications: History of esophageal varices Surgeon: Sabrina Greene Procedure Notes Procedure in detail: After informed consent was obtained the patient was placed in left lateral decubitus position. The video upper scope was placed into the oropharynx and with the patient's help swallowed into the esophagus. The esophagus stomach and duodenal were carefully examined. On withdrawal, retroflexed view the GE junction was performed. The scope was removed. The patient tolerated the procedure well. Blood loss none Complications none Sedation mac Findings 1. Normal esophagus without any evidence of esophageal varices. GE junction is fairly wide-open. 2. Fairly severe gastropathy or portal hypertension with significant hematin flecks. 3. Normal duodenal bulb and sweep Patient does not need follow-up EGD for another year
[2025-02-20] MEDS: LACTATED RINGERS 1,000 ML 42 ML IV (12:16)
[2025-02-20 12:56] VITALS: BP 102/53; PULSE 75; RESP 16; TEMP 36.2; O2SAT 98
[2025-02-20 12:59] VITALS: BP 84/56; PULSE 70; RESP 13; O2SAT 95
[2025-02-20 13:04] VITALS: BP 101/60; PULSE 76; RESP 16; TEMP 36.1; O2SAT 98
[2025-02-20 13:09] VITALS: PULSE 74; RESP 12; O2SAT 98
[2025-02-20 13:15] VITALS: BP 116/69
== END 2025-02-20 13:38 | disposition home or self-care (01) ==
PROVIDERS: PCP Family Medicine; Referring Provider Internal Medicine Gastroenterology; Visit Provider Internal Medicine Gastroenterology
PROC: 0DJ08ZZ Inspection of Upper Intestinal Tract, Via Natural or Artificial Opening Endoscopic (ICD-10-PCS; CPT 43235; principal; 2025-02-20 10:00)
DX: K31.89 Other diseases of stomach and duodenum (principal); Z87.19 Personal history of other diseases of the digestive system
CPT/HCPCS: 43235; J2704